=== PATIENT | female | born 1975 | race Caucasian/White ===

== ENCOUNTER → 2017-02-10 | Outpatient (CLI) | payer OTHER ==
--- NOTE | 2017-02-10 10:07 | MR ---
EXAMINATION TYPE: MR angio head wo con DATE OF EXAM: 02/10/2017 9:53 AM COMPARISON: MRI brain 09/10/2014 HISTORY: Vinny occipital neuralgia TECHNIQUE: Utilizing 3-D [id number] intracranial MRA of the [place] of [place] was performed. FINDINGS: The vertebrobasilar and carotid systems are patent. There is no sizable aneurysm or vascular malform ation. IMPRESSION: 1. No evidence of vascular malformation or sizable aneurysm.
== END | disposition home or self-care (01) ==
LOC: RADMRIMAIN 09:23
PROVIDERS: ATTEND Psychiatry & Neurology Neurology
DX: M54.81 Occipital neuralgia (principal)
CPT/HCPCS: 70544

== ENCOUNTER → 2018-07-29 | Outpatient (CLI) | payer OTHER ==
[2018-07-29 17:12] LABS: HCT 38.6 % (34.0-46.0); HGB 12.7 gm/dL (11.4-16.0); MCH 30.6 pg (25.0-35.0); MCHC 32.9 g/dL (31.0-37.0); MCV 93.3 fL (80.0-100.0); Mean Platelet Volume 6.9; Platelet Count 259 k/uL (150-450); RBC 4.13 m/uL (3.80-5.40); WBC 8.9 k/uL (3.8-10.6)
[2018-07-30 03:42] LABS: Progesterone 1.1 ng/mL
[2018-07-30 03:51] LABS: DHEA Sulfate 28.8 ug/dL (26.0-430.0)
== END | disposition home or self-care (01) ==
LOC: LABWHC1 16:36
PROVIDERS: ATTEND Surgery
DX: R53.83 Other fatigue (principal); E34.9 Endocrine disorder, unspecified; R61 Generalized hyperhidrosis; G47.9 Sleep disorder, unspecified
CPT/HCPCS: 36415; 82627; 82670; 84140; 84144; 84403; 84443; 84481; 85027

== ENCOUNTER → 2018-09-14 | Outpatient (CLI) | payer OTHER | LOC: LABWHC1 15:26 | PROVIDERS: ATTEND Surgery | DX: G47.00 Insomnia, unspecified (principal); E34.9 Endocrine disorder, unspecified; R53.81 Other malaise; R68.82 Decreased libido; Z51.81 Encounter for therapeutic drug level monitoring | CPT/HCPCS: 36415; 82627; 84144; 84403 ==

== ENCOUNTER → 2019-01-05 | Outpatient (CLI) | payer BC | LOC: LABWHC1 08:17 | PROVIDERS: ATTEND Surgery | DX: E34.9 Endocrine disorder, unspecified (principal); R53.81 Other malaise; Z51.81 Encounter for therapeutic drug level monitoring; G47.00 Insomnia, unspecified; R68.82 Decreased libido; R61 Generalized hyperhidrosis | CPT/HCPCS: 36415; 84403 ==

== ENCOUNTER 2019-09-19 09:44 | Inpatient (IN) | payer BC ==
[2019-09-19] MEDS ORDERED: MAGNESIUM SULFATE-D5W PMX 1 GM in DEXTROSE/WATER 1 100ML.BAG IVPB STA (09:52)
[2019-09-19] MEDS ORDERED: AZITHROMYCIN 500 MG in SODIUM CHLORIDE 0.9% 250 ML IVPB STA (09:52)
[2019-09-19] MEDS ORDERED: IPRATROPIUM 0.5 MG/2.5 ML NEBU INHALATION STA (09:52)
[2019-09-19] MEDS ORDERED: ALBUTEROL NEBULIZED 2.5 MG/3 ML INHALATION STA (09:52)
--- NOTE | 2019-09-19 10:00 | ED ---
General Adult HPI - General Stated complaint: bronchitis Time Seen by Provider: 09/19/19 09:52 Source: patient, family, RN notes reviewed, old records reviewed - History of Present Illness Initial comments: 44-year-old female history of asthma presenting for evaluation of cough and dyspnea. Patient has had 3 weeks of nonproductive cough and URI symptoms. She initially had been seen at an outside facility and had some improvement in her symptoms however over the past 24-48 hours she has worsened. She's had sore throat, congestion, and cough and dyspnea. She was seen at urgent care this morning given 125 mg Solu-Medrol and 2 breathing treatments. She was sent to the emergency department for further evaluation and treatment. Denies central chest pain. Denies abdominal pain nausea vomiting. - Related Data Home Medications Medication Instructions Recorded Confirmed Albuterol Sulfate [Proair Hfa] 1 puff INHALATION RT-Q6H PRN 10/04/14 10/04/15 Meclizine [Antivert] 25 mg PO TID PRN 10/04/14 10/04/15 tiZANidine HCL [Tizanidine HCl] 4 mg PO TID PRN 10/04/14 10/04/15 Albuterol Nebulized [Ventolin 2.5 mg INHALATION RT-Q6H PRN 10/04/15 10/04/15 Nebulized] FLUoxetine HCL [PROzac] 20 mg PO DAILY 10/04/15 10/04/15 Losartan-Hctz 50-12.5 mg [Hyzaar 1 tab PO DAILY 10/04/15 10/04/15 50-12.5] Ofloxacin 0.3% Ophth Soln [Ocuflox 1 drops BOTH EYES QID 10/04/15 10/04/15 Ophth Soln] Verapamil HCl [Verapamil ER] 240 mg PO DAILY 10/04/15 10/04/15 clonazePAM [KlonoPIN] 0.25 mg PO HS 10/04/15 10/04/15 Allergies Allergy/AdvReac Type Severity Reaction Status Date / Time amitriptyline HCl Allergy Unknown Verified 10/04/15 11:49 [From Elavil] hydrocodone bitartrate Allergy Unknown Verified 10/04/15 11:49 [From Vicodin] latex Allergy Unknown Verified 10/04/15 11:49 levomilnacipran HCl Allergy Unknown Verified 10/04/15 11:49 [From Fetzima] phenytoin sodium Allergy Unknown Verified 10/04/15 11:49 [From Dilantin] phenytoin sodium extended Allergy Unknown Verified 10/04/15 11:49 [From Dilantin] zolpidem tartrate Allergy Unknown Verified 10/04/15 11:49 [From Ambien] Review of Systems ROS Statement: Those systems with pertinent positive or pertinent negative responses have been documented in the HPI. ROS Other: All systems not noted in ROS Statement are negative. Past Medical History Past Medical History: Asthma, Seizure Disorder Additional Past Medical History / Comment(s): pituitary adenoma/ migraines/ influenza. Positive lyme dx 10 years ago History of Any Multi-Drug Resistant Organisms: MRSA Date of last positivie culture/infection: 2014 MDRO Source:: nose Past Surgical History: Section Additional Past Anesthesia/Blood Transfusion Reaction / Comment(s): NEVER Had blood transfusion Past Psychological History: ADD/ADHD, Anxiety Smoking Status: Never smoker Past Alcohol Use History: None Reported General Exam General appearance: alert, in distress (Mild respiratory distress) Head exam: Present: atraumatic, normocephalic Eye exam: Present: normal appearance, PERRL ENT exam: Present: mucous membranes moist, other (Differential erythema, no tonsillar swelling or exudate) Respiratory exam: Present: respiratory distress (Mild), wheezes, decreased breath sounds, other (Bronchospastic cough) Cardiovascular Exam: Present: normal rhythm, tachycardia GI/Abdominal exam: Present: soft. Absent: distended, tenderness, guarding Extremities exam: Present: normal inspection, normal capillary refill. Absent: pedal edema, calf tenderness Neurological exam: Present: alert, oriented X3, CN II-XII intact. Absent: motor sensory deficit Psychiatric exam: Present: normal affect, normal mood Skin exam: Present: warm, dry, intact. Absent: cyanosis, diaphoretic Course Vital Signs 09/19/19 09/19/19 09/19/19 09:54 10:00 10:01 Temperature 98.8 F Pulse Rate 94 98 Respiratory 18 30 H Rate Blood Pressure 125/73 O2 Sat by Pulse 99 Oximetry 09/19/19 09/19/19 10:15 10:23 Temperature Pulse Rate 97 84 Respiratory Rate Blood Pressure O2 Sat by Pulse Oximetry - Reevaluation(s) Reevaluation #1: 09/19/19 11:06 Patient evaluated, resting comfortably, significantly improve her respiratory status. She did have improvement with racemic epinephrine. Medical Decision Making - Medical Decision Making 44-year-old female 3 weeks of cough congestion and dyspnea worsening over the past 24 hours. Patient given albuterol, Atrovent and steroids prior to arrival, she given additional albuterol and magnesium. She had some improvement with racemic epinephrine as there was a slight suggestion of inspiratory upper airway sounds. No resting stridor. Significant bronchospastic cough. She will be admitted for IV steroids and further respiratory support. Case discussed with admitting physician Dr. Veronica - Lab Data Result diagrams: 09/19/19 10:00 09/19/19 10:00 Lab Results 09/19/19 09/19/19 09/19/19 Range/Units 10:00 10:00 10:00 WBC 14.5 H (3.8-10.6) k/uL RBC 4.13 (3.80-5.40) m/uL Hgb 13.0 (11.4-16.0) gm/dL Hct 38.4 (34.0-46.0) % MCV 92.9 (80.0-100.0) fL MCH 31.4 (25.0-35.0) pg MCHC 33.8 (31.0-37.0) g/dL RDW 12.3 (11.5-15.5) % Plt Count 223 (150-450) k/uL Neutrophils % 83 % Lymphocytes % 13 % Monocytes % 3 % Eosinophils % 1 % Basophils % 0 % Neutrophils # 12.0 H (1.3-7.7) k/uL Lymphocytes # 1.8 (1.0-4.8) k/uL Monocytes # 0.4 (0-1.0) k/uL Eosinophils # 0.1 (0-0.7) k/uL Basophils # 0.0 (0-0.2) k/uL PT 9.8 (9.0-12.0) sec INR 0.9 (<1.2) APTT 26.4 (22.0-30.0) sec Sodium 140 (137-145) mmol/L Potassium 3.9 (3.5-5.1) mmol/L Chloride 111 H (98-107) mmol/L Carbon Dioxide 20 L (22-30) mmol/L Anion Gap 9 mmol/L BUN 11 (7-17) mg/dL Creatinine 0.67 (0.52-1.04) mg/dL Est GFR (CKD-EPI)AfAm >90 (>60 ml/min/1.73 sqM) Est GFR (CKD-EPI)NonAf >90 (>60 ml/min/1.73 sqM) Glucose 104 H (74-99) mg/dL Calcium 9.0 (8.4-10.2) mg/dL Magnesium 1.7 (1.6-2.3) mg/dL Total Bilirubin 0.4 (0.2-1.3) mg/dL AST 43 H (14-36) U/L ALT 36 (9-52) U/L Alkaline Phosphatase 90 (38-126) U/L Total Protein 7.0 (6.3-8.2) g/dL Albumin 3.9 (3.5-5.0) g/dL Disposition Clinical Impression: Asthma with acute exacerbation Disposition: ADMITTED IP TO THIS [facility] Condition: Stable Is patient prescribed a controlled substance at d/c from ED?: No Referrals: Urszula Guzman MD [Primary Care Provider] - 1-2 days Decision to Admit Reason: Admit from EC Decision Date: 09/19/19 Decision Time: 11:08
[2019-09-19 10:09] LABS: Basophils % (A) 0 %; Eosinophils # (A) 0.1 k/uL (0-0.7); Eosinophils % (A) 1 %; HCT 38.4 % (34.0-46.0); Lymphocytes # (A) 1.8 k/uL (1.0-4.8); Lymphocytes % (A) 13 %; MCH 31.4 pg (25.0-35.0); MCHC 33.8 g/dL (31.0-37.0); MCV 92.9 fL (80.0-100.0); Mean Platelet Volume 6.4; Monocytes # (A) 0.4 k/uL (0-1.0); Monocytes % (A) 3 %; Neutrophils % (A) 83 %; Platelet Count 223 k/uL (150-450); RBC 4.13 m/uL (3.80-5.40); RDW 12.3 % (11.5-15.5); WBC 14.5 k/uL (3.8-10.6)
[2019-09-19] MEDS ORDERED: RACEPINEPHRINE 2.25% NEB 0.5 ML NEBU INHALATION STA (10:12)
[2019-09-19 10:29] LABS: INR 0.9 (<1.2); Partial Thromboplastin Time 26.4 sec (22.0-30.0); Prothrombin Time 9.8 sec (9.0-12.0)
[2019-09-19 10:58] LABS: ALT 36 U/L (9-52); AST 43 U/L (14-36); African American GFR (CKD) >90 (>60 ml/min/1.73 sqM); Albumin 3.9 g/dL (3.5-5.0); Alkaline Phosphatase 90 U/L (38-126); Anion Gap 9 mmol/L; Blood Urea Nitrogen 11 mg/dL (7-17); Carbon Dioxide 20 mmol/L (22-30); Chloride 111 mmol/L (98-107); Glucose 104 mg/dL (74-99); Magnesium 1.7 mg/dL (1.6-2.3); Potassium 3.9 mmol/L (3.5-5.1); Sodium 140 mmol/L (137-145); Total Bilirubin 0.4 mg/dL (0.2-1.3)
--- NOTE | 2019-09-19 10:59 | XR ---
EXAMINATION TYPE: XR chest 2V DATE OF EXAM: 09/19/2019 HISTORY: difficulty breathing. REFERENCE: Previous study dated 10/04/2015. FINDINGS: The lungs remain clear. Pleural space are clear. The heart is not enlarged. IMPRESSION: NO ACTIVE INTRATHORACIC DISEASE.
[2019-09-19] MEDS ORDERED: IPRATROPIUM-ALBUTEROL 3 ML NEB INHALATION PRN (11:01)
[2019-09-19] MEDS ORDERED: RACEPINEPHRINE 2.25% NEB 0.5 ML NEBU INHALATION PRN (11:06)
[2019-09-19] MEDS ORDERED: SODIUM CHLORIDE 0.9% 1,000 ML IV SCH (12:15)
--- NOTE | 2019-09-19 12:58 | P.HPIM ---
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 Hypothyroidism and high blood pressure. She has 2 dogs at home. She has history of hysterectomy secondary to endometriosis Presents because of dyspnea over 3 weeks duration. Patient states that she went to urgent care with diagnosed her with fibrosing from however after one week she went back because she wasn't feeling better and they diagnosed her with bronchitis and cough and these described prep cefdinir and destroyed she felt better and her last dose of antibiotics was once daily, however answers that she started feeling bad again with sore throat fever of 101 and dyspnea. Also she has complained from dry cough, generalized body ache and headache. Also complaining of from diarrhea about 3-4 times per day Vitas looks stable, patient is afebrile and she saturating 95% on room air. Labs showing leukocytosis of 14.5 K, INR within normal limits, BMP and liver enzymes were unremarkable. Chest x-ray: No acute process. In the emergency room she got bronchodilator, and started on Zithromax, also she gets 1 dose of racemic epinephrine for stridor. Patient was started on senna Medrol 60 mg. after therapy patient feels much better, no much try to when I saw the patient Review of Systems CONSTITUTIONAL: No fever, no malaise, no fatigue. HEENT: No recent visual problems or hearing problems. Denied any sore throat. CARDIOVASCULAR: No orthopnea, PND, no palpitations, no syncope. PULMONARY: No shortness of breath, no cough, no hemoptysis. GASTROINTESTINAL: No diarrhea, no nausea, no vomiting, no abdominal pain. Normoactive bowel sounds. NEUROLOGICAL: No headaches, no weakness, no numbness. HEMATOLOGICAL: Denies any bleeding or petechiae. GENITOURINARY: Denies any burning micturition, frequency, or urgency. MUSCULOSKELETAL/RHEUMATOLOGICAL: Denies any joint pain, swelling, or any muscle pain. ENDOCRINE: Denies any polyuria or polydipsia. ROS unobtainable: due to endotracheal tube Past Medical History Past Medical History: Asthma, Seizure Disorder Additional Past Medical History / Comment(s): pituitary adenoma/ migraines/ influenza. Positive lyme dx 10 years ago History of Any Multi-Drug Resistant Organisms: MRSA Date of last positivie culture/infection: 2014 MDRO Source:: nose Past Surgical History: Section Additional Past Anesthesia/Blood Transfusion Reaction / Comment(s): NEVER Had blood transfusion Past Psychological History: ADD/ADHD, Anxiety Smoking Status: Never smoker Past Alcohol Use History: None Reported Medications and Allergies Home Medications Medication Instructions Recorded Confirmed Type Albuterol Nebulized [Ventolin 2.5 mg INHALATION RT-TID PRN 10/04/15 09/19/19 History Nebulized] Sertraline HCl [Zoloft] 100 mg PO HS 09/19/19 09/19/19 History Thyroid,Pork [[place] Thyroid] 60 mg PO DAILY 09/19/19 09/19/19 History Triamterene/Hydrochlorothiazid 1 tab PO DAILY 09/19/19 09/19/19 History [Maxzide 37.5-25] hydrOXYzine HCL [Atarax] 12.5 - 25 mg PO HS 09/19/19 09/19/19 History Allergies Allergy/AdvReac Type Severity Reaction Status Date / Time amitriptyline HCl Allergy Unknown Verified 09/19/19 11:20 [From Elavil] hydrocodone bitartrate Allergy Unknown Verified 09/19/19 11:20 [From Vicodin] latex Allergy Unknown Verified 09/19/19 11:20 levomilnacipran HCl Allergy Unknown Verified 09/19/19 11:20 [From Fetzima] phenytoin sodium Allergy Unknown Verified 09/19/19 11:20 [From Dilantin] phenytoin sodium extended Allergy Unknown Verified 09/19/19 11:20 [From Dilantin] zolpidem tartrate Allergy Unknown Verified 09/19/19 11:20 [From Ambien] Physical Exam Vitals: Vital Signs Temp Pulse Pulse Resp BP BP Pulse Ox 09/19/19 12:08 98.3 F 99 24 118/70 98 09/19/19 11:30 98.0 F 102 H 16 131/89 100 09/19/19 10:23 84 09/19/19 10:15 97 09/19/19 10:01 98 09/19/19 10:00 30 H 09/19/19 09:54 98.8 F 94 18 125/73 99 Intake and Output 09/18/19 09/19/19 09/19/19 22:59 06:59 14:59 Other: Weight 77.111 kg GENERAL: The patient is alert and oriented x3, not in any acute distress. Well developed, well nourished. HEENT: Pupils are round and equally reacting to light. EOMI. No scleral icterus. No conjunctival pallor. Normocephalic, atraumatic. No pharyngeal erythema. No thyromegaly. CARDIOVASCULAR: S1 and S2 present. No murmurs, rubs, or gallops. -PULMONARY: Chest is clear to auscultation, bilateral scattered expiratory wheezing ABDOMEN: Soft, nontender, nondistended, normoactive bowel sounds. No palpable organomegaly. MUSCULOSKELETAL: No joint swelling or deformity. EXTREMITIES: No cyanosis, clubbing, or pedal edema. NEUROLOGICAL: Gross neurological examination did not reveal any focal deficits. SKIN: No rashes. No petechiae Results CBC & Chem 7: 09/19/19 10:00 09/19/19 10:00 Labs: Abnormal Lab Results - Last 24 Hours (Table) 09/19/19 09/19/19 Range/Units 10:00 10:00 WBC 14.5 H (3.8-10.6) k/uL Neutrophils # 12.0 H (1.3-7.7) k/uL Chloride 111 H (98-107) mmol/L Carbon Dioxide 20 L (22-30) mmol/L Glucose 104 H (74-99) mg/dL AST 43 H (14-36) U/L Assessment and Plan Assessment: Upper respiratory tract infection. 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 Also patient had fever. Continue with antibiotics, steroids and bronchodilators. Oxygen as needed. Call pulmonary consult. Check influenza.Start the patient on normal saline at 75 mL/h. Check protocols 20 Labs and medication were reviewed.. Continue same treatment. Continue with symptomatic treatment. Resume home medication. Monitor lytes and vitals. DVT and GI prophylaxis. Further recommendations of the clinical course of the patient DVT prophylaxis: Subcutaneous heparin GI Prophylaxis: Pepcid Prognosis is guarded
[2019-09-19 12:59] LABS: Glucose,Whole Blood 207 mg/dL (75-99)
--- NOTE | 2019-09-19 13:25 | P.CNPUL ---
History of Present Illness Consult date: 09/19/19 Reason for consult: dyspnea History of present illness: Pleasant 44-year-old female patient with history of mild intermittent bronchial asthma with not been taking any form of respiratory medications on outpatient basis, comes into the hospital because of increased cough and dyspnea and chest tightness and wheezing related to asthma exacerbation. Apparently this been going on for the past 2-3 weeks. She has seen in urgent care on several o ccasions and she was given a course of antibiotics and a short course of prednisone burst taper. She was having sore throat and a temperature along with her asthma symptoms. Initially she was told that she was dealing with a viral infection and subsequently she was given antibiotics. Note that the patient was having generalized body aches and headache. She did experience some diarrhea. None for now. She came into the hospital yesterday because of increased dyspnea. She was given bronchodilators and steroids. She was also given a dose of to make epinephrine. She is a bit tachycardic. She is already feeling better. No specific complaints. She has seasonal ALLERGIES and she takes Al legra for that. No hospitalizations for asthma related complications. Her disease has been essentially mild intermittent in nature. She has other medical problems and comorbidities yet these are not related to asthma. No recurrent pneumonias. Her lactic acid at time of admission was 2.7. I thought, was at 14.5. Review of Systems Constitutional: Reports fatigue, Reports fever, Reports lethargy, Reports weakness Eyes: denies as per HPI, denies blurred vision, denies bulging eye, denies decreased vision, denies diplopia, denies discharge, denies dry eye, denies irritation, denies itching, denies pain, denies photophobia, denies loss of peripheral vision, denies loss of vision, denies tunnel vision/blind spots Ears: deny: decreased hearing, ear discharge, earache, tinnitus Ears, nose, mouth and throat: Reports as per HPI, Reports mouth pain (Sore throat) Breasts: absent: as per HPI, change in shape, gynecomastia, masses, nipple discharge, pain, skin changes, swelling Cardiovascular: Reports dyspnea on exertion Respiratory: Reports cough, Reports dyspnea, Reports wheezing Gastrointestinal: Reports as per HPI Genitourinary: Reports as per HPI Menstruation: Reports as per HPI Musculoskeletal: Reports as per HPI Musculoskeletal: absent: ankle pain, ankle stiffness, ankle swelling, as per HPI, elbow pain, elbow stiffness, elbow swelling, foot pain, foot stiffness, f oot swelling, hand pain, hand stiffness, hand swelling, hip pain, hip stiffness, hip swelling, knee pain, knee stiffness, knee swelling, shoulder pain, shoulder stiffness, shoulder swelling, wrist pain, wrist stiffness, wrist swelling Integumentary: Reports as per HPI Neurological: Reports as per HPI Psychiatric: Reports as per HPI Endocrine: Reports as per HPI Hematologic/Lymphatic: Reports as per HPI Allergic/Immunologic: Reports as per HPI Past Medical History Past Medical History: Asthma, Seizure Disorder Additional Past Medical History / Comment(s): pituitary adenoma/ migraines/ influenza. Positive lyme dx 10 years ago History of Any Multi-Drug Resistant Organisms: MRSA Date of last positivie culture/infection: 2014 MDRO Source:: nose Past Surgical History: Section Additional Past Anesthesia/Blood Transfusion Reaction / Comment(s): NEVER Had blood transfusion Past Psychological History: ADD/ADHD, Anxiety Smoking Status: Never smoker Past Alcohol Use History: None Reported Medications and Allergies Home Medications Medication Instructions Recorded Confirmed Type Albuterol Nebulized [Ventolin 2.5 mg INHALATION RT-TID PRN 10/04/15 09/19/19 History Nebulized] Sertraline HCl [Zoloft] 100 mg PO HS 09/19/19 09/19/19 History Thyroid,Pork [[place] Thyroid] 60 mg PO DAILY 09/19/19 09/19/19 History Triamterene/Hydrochlorothiazid 1 tab PO DAILY 09/19/19 09/19/19 History [Maxzide 37.5-25] hydrOXYzine HCL [Atarax] 12.5 - 25 mg PO HS 09/19/19 09/19/19 History Allergies Allergy/AdvReac Type Severity Reaction Status Date / Time amitriptyline HCl Allergy Unknown Verified 09/19/19 11:20 [From Elavil] hydrocodone bitartrate Allergy Unknown Verified 09/19/19 11:20 [From Vicodin] latex Allergy Unknown Verified 09/19/19 11:20 levomilnacipran HCl Allergy Unknown Verified 09/19/19 11:20 [From Fetzima] phenytoin sodium Allergy Unknown Verified 09/19/19 11:20 [From Dilantin] phenytoin sodium extended Allergy Unknown Verified 09/19/19 11:20 [From Dilantin] zolpidem tartrate Allergy Unknown Verified 09/19/19 11:20 [From Ambien] Physical Exam Vitals: Vital Signs Temp Pulse Pulse Resp BP BP Pulse Ox 09/19/19 12:08 98.3 F 99 24 118/70 98 09/19/19 11:30 98.0 F 102 H 16 131/89 100 09/19/19 10:23 84 09/19/19 10:15 97 09/19/19 10:01 98 09/19/19 10:00 30 H 09/19/19 09:54 98.8 F 94 18 125/73 99 Intake and Output 09/18/19 09/19/19 09/19/19 22:59 06:59 14:59 Other: Weight 77.111 kg The patient appeared well nourished and normally developed. Vital signs as documented. Head exam is unremarkable. No scleral icterus or corneal arcus noted. Neck is without jugular venous distension, thyromegaly, or carotid bruits. Carotid upstrokes are brisk bilaterally. Lungs are diminished along with some few scattered expiratory wheezes upon forceful expiratory maneuvers. Cardiac exam reveals the PMI to be normally sized and situated. Rhythm is regular. First and second heart sounds normal. No murmurs, rubs or gallops. Abdominal exam reveals normal bowel sounds, no masses, no organomegaly and no aortic enlargement. Extremities are nonedematous and both femoral and pedal pulses are normal.Examination of the skin revealed no evidence of significant rashes, suspicious appearing nevi or other concerning lesions. Neurologically the patient is awake and alert and there is no focal neurological deficit. Results - Laboratory Findings CBC and BMP: 09/19/19 10:00 09/19/19 10:00 ABG WBC 14.5 k/uL (3.8-10.6) H 09/19/19 10:00 RBC 4.13 m/uL (3.80-5.40) 09/19/19 10:00 Hgb 13.0 gm/dL (11.4-16.0) 09/19/19 10:00 Hct 38.4 % (34.0-46.0) 09/19/19 10:00 MCV 92.9 fL (80.0-100.0) 09/19/19 10:00 MCH 31.4 pg (25.0-35.0) 09/19/19 10:00 MCHC 33.8 g/dL (31.0-37.0) 09/19/19 10:00 RDW 12.3 % (11.5-15.5) 09/19/19 10:00 Plt Count 223 k/uL (150-450) 09/19/19 10:00 Neutrophils % 83 % 09/19/19 10:00 Lymphocytes % 13 % 09/19/19 10:00 Monocytes % 3 % 09/19/19 10:00 Eosinophils % 1 % 09/19/19 10:00 Basophils % 0 % 09/19/19 10:00 Neutrophils # 12.0 k/uL (1.3-7.7) H 09/19/19 10:00 Lymphocytes # 1.8 k/uL (1.0-4.8) 09/19/19 10:00 Monocytes # 0.4 k/uL (0-1.0) 09/19/19 10:00 Eosinophils # 0.1 k/uL (0-0.7) 09/19/19 10:00 Basophils # 0.0 k/uL (0-0.2) 09/19/19 10:00 PT 9.8 sec (9.0-12.0) 09/19/19 10:00 INR 0.9 (<1.2) 09/19/19 10:00 APTT 26.4 sec (22.0-30.0) 09/19/19 10:00 Sodium 140 mmol/L (137-145) 09/19/19 10:00 Potassium 3.9 mmol/L (3.5-5.1) 09/19/19 10:00 Chloride 111 mmol/L (98-107) H 09/19/19 10:00 Carbon Dioxide 20 mmol/L (22-30) L 09/19/19 10:00 Anion Gap 9 mmol/L 09/19/19 10:00 BUN 11 mg/dL (7-17) 09/19/19 10:00 Creatinine 0.67 mg/dL (0.52-1.04) 09/19/19 10:00 Est GFR (CKD-EPI)AfAm >90 (>60 ml/min/1.73 sqM) 09/19/19 10:00 Est GFR (CKD-EPI)NonAf >90 (>60 ml/min/1.73 sqM) 09/19/19 10:00 Glucose 104 mg/dL (74-99) H 09/19/19 10:00 POC Glucose (mg/dL) 207 mg/dL (75-99) H 09/19/19 12:58 POC Glu Gunite Mixer ID Michael Haro 09/19/19 12:58 Plasma Lactic Acid Gurpreet 2.7 mmol/L (0.7-2.0) H* 09/19/19 10:00 Calcium 9.0 mg/dL (8.4-10.2) 09/19/19 10:00 Magnesium 1.7 mg/dL (1.6-2.3) 09/19/19 10:00 Total Bilirubin 0.4 mg/dL (0.2-1.3) 09/19/19 10:00 AST 43 U/L (14-36) H 09/19/19 10:00 ALT 36 U/L (9-52) 09/19/19 10:00 Alkaline Phosphatase 90 U/L (38-126) 09/19/19 10:00 Total Protein 7.0 g/dL (6.3-8.2) 09/19/19 10:00 Albumin 3.9 g/dL (3.5-5.0) 09/19/19 10:00 PT/INR, D-dimer PT 9.8 sec (9.0-12.0) 09/19/19 10:00 INR 0.9 (<1.2) 09/19/19 10:00 Abnormal lab findings: Abnormal Labs 09/19/19 09/19/19 09/19/19 10:00 10:00 10:00 WBC 14.5 H Neutrophils # 12.0 H Chloride 111 H Carbon Dioxide 20 L Glucose 104 H POC Glucose (mg/dL) Plasma Lactic Acid Gurpreet 2.7 H* AST 43 H 09/19/19 12:58 WBC Neutrophils # Chloride Carbon Dioxide Glucose POC Glucose (mg/dL) 207 H Plasma Lactic Acid Gurpreet AST - Diagnostic Findings Chest x-ray: image reviewed Assessment and Plan Plan: 1 acute asthma exacerbation with secondary shortness of breath and cough and wheeze. 2 acute bronchitis, no evidence of pneumonia and the patient has received antibiotics and steroids on outpatient basis. This could be viral versus bacte rial. Chest x-ray show any pulmonary infiltrates or pneumonias. 3 Mild lactic acidosis, with some leukocytosis and this is to be monitored and there is no clinical evidence of any septic event for now. 4. History of Lyme's disease 5 hypothyroidism 6 hypertension 7 history of endometriosis Plan Continued on the current treatment. The patient was noted to be slightly tachycardic. His continue the systemic epinephrine used regular albuterol and Atrovent solution Continued IV Solu-Medrol. Continue antibiotics. Monitor the white cell count. Monitor lactic acid levels. We'll continue to follow. This is a case of mild intermittent bronchial asthma and she may not even require maintenance inhalers on outpatient basis. We'll be glad to see her in the office once she is discharged. Anticipate for recovery.
[2019-09-19] MEDS: methylPREDNISolone SOD SUCCI 125 MG/2 ML VIAL IV SCH ×3 (13:29→23:26)
[2019-09-19] MEDS: INSULIN ASPART (NovoLOG) 100 UNIT/ML VIAL SQ SCH ×3 (13:32→21:14)
[2019-09-19] MEDS: ACETAMINOPHEN TAB 325 MG TAB PO PRN (15:53)
[2019-09-19] MEDS: IPRATROPIUM-ALBUTEROL 3 ML NEB INHALATION SCH ×2 (17:22→20:01)
[2019-09-19 17:29] LABS: Glucose,Whole Blood 156 mg/dL (75-99)
[2019-09-19] MEDS ORDERED: SODIUM CHLORIDE 0.9% 1,000 ML IV ONE (17:59)
[2019-09-19] MEDS: BUTALB/APAP/CAFF 50-325-40MG TAB PO PRN (18:02)
[2019-09-19] MEDS: SODIUM CHLORIDE 0.9% 1,000 ML IV SCH (19:25)
[2019-09-19 20:26] LABS: Glucose,Whole Blood 217 mg/dL (75-99)
[2019-09-19] MEDS: HEPARIN SODIUM,PORCINE 5,000 UNIT/ML 1 ML VIAL SQ SCH (21:13)
[2019-09-19] MEDS: FAMOTIDINE 20 MG/2 ML VIAL IV SCH (21:13)
[2019-09-20] MEDS: ACETAMINOPHEN TAB 325 MG TAB PO PRN (05:15)
[2019-09-20] MEDS: BUTALB/APAP/CAFF 50-325-40MG TAB PO PRN ×3 (05:20→15:01)
[2019-09-20 06:56] LABS: Glucose,Whole Blood 140 mg/dL (75-99)
[2019-09-20] MEDS: SODIUM CHLORIDE 0.9% 1,000 ML IV SCH ×2 (07:00→18:00)
[2019-09-20] MEDS: methylPREDNISolone SOD SUCCI 125 MG/2 ML VIAL IV SCH ×3 (07:00→17:59)
[2019-09-20] MEDS: INSULIN ASPART (NovoLOG) 100 UNIT/ML VIAL SQ SCH ×4 (07:01→22:35)
[2019-09-20] MEDS: IPRATROPIUM-ALBUTEROL 3 ML NEB INHALATION SCH ×4 (09:02→20:59)
[2019-09-20] MEDS: AZITHROMYCIN 500 MG TAB PO SCH (09:24)
[2019-09-20] MEDS: FAMOTIDINE 20 MG/2 ML VIAL IV SCH ×2 (09:25→20:32)
[2019-09-20] MEDS: HEPARIN SODIUM,PORCINE 5,000 UNIT/ML 1 ML VIAL SQ SCH ×2 (09:25→20:32)
--- NOTE | 2019-09-20 09:55 | P.PN ---
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 Hypothyroidism and high blood pressure. She has 2 dogs at home. She has history of hysterectomy secondary to endometriosis Presents because of dyspnea over 3 weeks duration. Patient states that she went to urgent care with diagnosed her with fibrosing from however after one week she went back because she wasn't feeling better and they diagnosed her with bronchitis and cough and these described prep cefdinir and destroyed she felt better and her last dose of antibiotics was once daily, however answers that she started feeling bad again with sore throat fever of 101 and dyspnea. Also she has complained from dry cough, generalized body ache and headache. Also complaining of from diarrhea about 3-4 times per day Vitas looks stable, patient is afebrile and she saturating 95% on room air. Labs showing leukocytosis of 14.5 K, INR within normal limits, BMP and liver enzymes were unremarkable. Chest x-ray: No acute process. In the emergency room she got bronchodilator, and started on Zithromax, also she gets 1 dose of racemic epinephrine for stridor. Patient was started on senna Medrol 60 mg. after therapy patient feels much better, no much try to when I saw the patient 09/20/2019 Patient feels better today her dyspnea is improved by 50% as per her description. No chest pain she has some dry cough, cough suppressant is a provided. Vitas looks stable and she saturating 99% on room air. Her lactic acid came back to normal at 1.7. She remains on Zithromax and Solu-Medrol 60 mg as well as normal saline at 75 mL/h continue with pain management with Fioricet. Pulmonary team are following the patient closely Review of systems CONSTITUTIONAL: No fever, no malaise, no fatigue. HEENT: No recent visual problems or hearing problems. Denied any sore throat. CARDIOVASCULAR: no palpitations, no syncope. PULMONARY: no hemoptysis. GASTROINTESTINAL: No diarrhea, no nausea, no vomiting, no abdominal pain. Normoactive bowel sounds. NEUROLOGICAL: No headaches, no weakness, no numbness. HEMATOLOGICAL: Denies any bleeding or petechiae. GENITOURINARY: Denies any burning micturition, frequency, or urgency. MUSCULOSKELETAL/RHEUMATOLOGICAL: Denies any joint pain, swelling, or any muscle pain. ENDOCRINE: Denies any polyuria or polydipsia. Active Medications Generic Name Dose Route Start Last Admin Trade Name Freq PRN Reason Stop Dose Admin Acetaminophen 325 mg 09/19/19 15:38 09/20/19 05:15 Tylenol Tab PO 325 mg Q4HR PRN Administration Fever and/ or MILD Pain Acetaminophen/Butalbital/Caffeine 1 each 09/19/19 17:06 09/20/19 05:20 Fioricet 50-325-40 PO 1 each Q4HR PRN Administration Headache Albuterol/Ipratropium 3 ml 09/19/19 11:01 Duoneb 0.5 Mg-3 Mg/3 Ml Soln INHALATION RT-Q4H PRN Shortness Of Breath Or Wheezing Albuterol/Ipratropium 3 ml 09/19/19 16:00 09/20/19 09:02 Duoneb 0.5 Mg-3 Mg/3 Ml Soln INHALATION 3 ml RT-QID SADAF Administration Azithromycin 500 mg 09/20/19 09:00 09/20/19 09:24 Zithromax PO 500 mg DAILY SADAF Administration Epinephrine 0.5 ml 09/19/19 11:06 S2 Racepinephrine INHALATION RT-Q4H PRN Bronchospasm Famotidine 20 mg 09/19/19 21:00 09/20/19 09:25 Pepcid IV 20 mg Q12HR SADAF Administration Heparin Sodium (Porcine) 5,000 unit 09/19/19 21:00 09/20/19 09:25 Heparin SQ 5,000 unit Q12HR SADAF Administration Sodium Chloride 1,000 mls @ 75 mls/hr 09/19/19 13:00 09/20/19 07:00 Saline 0.9% IV 75 mls/hr .[id number] SADAF Administration Insulin Aspart 0 unit 09/19/19 17:30 09/20/19 07:01 Novolog SQ 1 unit ACHS SADAF Administration Protocol Methylprednisolone Sodium Succinate 60 mg 09/19/19 12:00 09/20/19 07:00 Solu-Medrol IV 60 mg Q6HR SADAF Administration Objective - Vital Signs Vital signs: Vital Signs Temp 98.6 F 09/20/19 08:20 Pulse 90 09/20/19 09:13 Resp 18 09/20/19 08:20 BP 114/75 09/20/19 08:20 Pulse Ox 99 09/20/19 08:20 Intake & Output 09/19/19 09/20/19 09/20/19 18:59 06:59 18:59 Intake Total 300 Balance 300 Weight 77.111 kg Intake: Oral 300 Other: Voiding Method Toilet # Voids 1 1 - Exam GENERAL: The patient is alert and oriented x3, not in any acute distress. Well developed, well nourished. HEENT: Pupils are round and equally reacting to light. EOMI. No scleral icterus. No conjunctival pallor. Normocephalic, atraumatic. No pharyngeal erythema. No thyromegaly. CARDIOVASCULAR: S1 and S2 present. No murmurs, rubs, or gallops. -PULMONARY: Chest is clear to auscultation, bilateral scattered expiratory wheezing ABDOMEN: Soft, nontender, nondistended, normoactive bowel sounds. No palpable organomegaly. MUSCULOSKELETAL: No joint swelling or deformity. EXTREMITIES: No cyanosis, clubbing, or pedal edema. NEUROLOGICAL: Gross neurological examination did not reveal any focal deficits. SKIN: No rashes. No petechiae - Labs CBC & Chem 7: 09/19/19 10:00 09/19/19 10:00 Labs: Abnormal Lab Results - Last 24 Hours (Table) 09/19/19 09/19/19 09/19/19 Range/Units 10:00 10:00 10:00 WBC 14.5 H (3.8-10.6) k/uL Neutrophils # 12.0 H (1.3-7.7) k/uL Chloride 111 H (98-107) mmol/L Carbon Dioxide 20 L (22-30) mmol/L Glucose 104 H (74-99) mg/dL POC Glucose (mg/dL) (75-99) mg/dL Plasma Lactic Acid Gurpreet 2.7 H* (0.7-2.0) mmol/L AST 43 H (14-36) U/L 09/19/19 09/19/19 09/19/19 Range/Units 12:58 16:15 17:28 WBC (3.8-10.6) k/uL Neutrophils # (1.3-7.7) k/uL Chloride (98-107) mmol/L Carbon Dioxide (22-30) mmol/L Glucose (74-99) mg/dL POC Glucose (mg/dL) 207 H 156 H (75-99) mg/dL Plasma Lactic Acid Gurpreet 3.0 H* (0.7-2.0) mmol/L AST (14-36) U/L 09/19/19 09/20/19 Range/Units 20:25 06:52 WBC (3.8-10.6) k/uL Neutrophils # (1.3-7.7) k/uL Chloride (98-107) mmol/L Carbon Dioxide (22-30) mmol/L Glucose (74-99) mg/dL POC Glucose (mg/dL) 217 H 140 H (75-99) mg/dL Plasma Lactic Acid Gurpreet (0.7-2.0) mmol/L AST (14-36) U/L Assessment and Plan Assessment: Upper respiratory tract infection. 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 Also patient had fever. Continue with antibiotics, steroids and bronchodilators. Oxygen as needed. Call pulmonary consult. Check influenza.Start the patient on normal saline at 75 mL/h. Check protocols 20 Labs and medication were reviewed.. Continue same treatment. Continue with symptomatic treatment. Resume home medication. Monitor lytes and vitals. DVT and GI prophylaxis. Further recommendations of the clinical course of the patient DVT prophylaxis: Subcutaneous heparin GI Prophylaxis: Pepcid Prognosis is guarded
[2019-09-20 12:29] LABS: Glucose,Whole Blood 151 mg/dL (75-99)
[2019-09-20 13:29] LABS: Basophils % (A) 0 %; Eosinophils # (A) 0.1 k/uL (0-0.7); Eosinophils % (A) 0 %; HGB 11.8 gm/dL (11.4-16.0); Lymphocytes # (A) 1.1 k/uL (1.0-4.8); Lymphocytes % (A) 5 %; MCH 31.4 pg (25.0-35.0); MCHC 32.7 g/dL (31.0-37.0); Mean Platelet Volume 7.6; Monocytes # (A) 0.4 k/uL (0-1.0); Monocytes % (A) 2 %; Neutrophils # (A) 19.1 k/uL (1.3-7.7); Neutrophils % (A) 92 %; Platelet Count 240 k/uL (150-450); RBC 3.75 m/uL (3.80-5.40); RDW 12.6 % (11.5-15.5); WBC 20.7 k/uL (3.8-10.6)
--- NOTE | 2019-09-20 13:36 | P.PN ---
Subjective Progress Note Date: 09/20/19 Principal diagnosis: Acute exacerbation of mild intermittent asthma Pleasant 44-year-old female patient with history of mild intermittent bronchial asthma with not been taking any form of respiratory medications on outpatient basis, comes into the hospital because of increased cough and dyspnea and chest tightness and wheezing related to asthma exacerbation. Apparently this been going on for the past 2-3 weeks. She has seen in urgent care on several occasions and she was given a course of antibiotics and a short course of prednisone burst taper. She was having sore throat and a temperature along with her asthma symptoms. Initially she was told that she was dealing with a viral infection and subsequently she was given antibiotics. Note that the patient was having generalized body aches and headache. She did experience some diarrhea. None for now. She came into the hospital yesterday because of increased dyspnea. She was given bronchodilators and steroids. She was also given a dose of to make epinephrine. She is a bit tachycardic. She is already feeling better. No specific complaints. She has seasonal ALLERGIES and she takes Laure for that. No hospitalizations for asthma related complications. Her disease has been essentially mild intermittent in nature. She has other medical problems and comorbidities yet these are not related to asthma. No recurrent pneumonias. Her lactic acid at time of admission was 2.7. I thought, was at 14.5. Patient was reevaluated today on 09/20/2019, remains inpatient, however the patient is demonstrating a significant improvement over the last 24 hours. Patient is breathing a lot easier, minimal cough minimal wheezing, minimal shortness of breath compared to yesterday. Remains on bronchodilators and steroids as well as antibiotics. Significantly improved over the last 24 hours. WBC count is 20.7 hemoglobin is 11.8, however her leukocytosis could very well be related to steroids. Chest x-ray on admission showed no evidence of pneumonia. Objective - Vital Signs Vital signs: Vital Signs Temp 98.4 F 09/20/19 12:10 Pulse 92 09/20/19 13:23 Resp 18 09/20/19 12:10 BP 101/67 09/20/19 12:10 Pulse Ox 100 09/20/19 12:10 Intake & Output 09/19/19 09/20/19 09/20/19 18:59 06:59 18:59 Intake Total 300 Balance 300 Weight 77.111 kg Intake: Oral 300 Other: Voiding Method Toilet # Voids 1 1 - Exam Physical Exam: Revealed a 44-year-old female, pleasant, in no distress. Head: Atraumatic normocephalic. HEENT:[Neck is supple.] [No neck masses.] [No thyromegaly.] [No JVD.] PERRLA, EOMI, no icterus, moist mucous membranes. Chest: [Clear throughout, no crackles, no rhonchi, no wheezes.] Cardiac Exam: [Normal S1 and S2, no S3 gallop, no murmur.] Abdomen: [Soft, nontender, no megaly, no rebound, no guarding, normal bowel sounds.] Extremities: [No clubbing, no edema, no cyanosis.] Neurological Exam: [No focal neurologic deficit.] Alert oriented 3. Psychiatric: Normal mood affect and normal mental status examination. Skin: No rashes. Musculoskeletal: No limitations in range of motion and no deformities. - Labs CBC & Chem 7: 09/20/19 12:51 09/19/19 10:00 Labs: Abnormal Lab Results - Last 24 Hours (Table) 09/19/19 09/19/19 09/19/19 Range/Units 16:15 17:28 20:25 WBC (3.8-10.6) k/uL RBC (3.80-5.40) m/uL Neutrophils # (1.3-7.7) k/uL POC Glucose (mg/dL) 156 H 217 H (75-99) mg/dL Plasma Lactic Acid Gurpreet 3.0 H* (0.7-2.0) mmol/L 09/20/19 09/20/19 09/20/19 Range/Units 06:52 12:26 12:51 WBC 20.7 H (3.8-10.6) k/uL RBC 3.75 L (3.80-5.40) m/uL Neutrophils # 19.1 H (1.3-7.7) k/uL POC Glucose (mg/dL) 140 H 151 H (75-99) mg/dL Plasma Lactic Acid Gurpreet (0.7-2.0) mmol/L Microbiology - Last 24 Hours (Table) 09/19/19 10:00 Blood Culture - Preliminary Blood No Growth after 24 hours Assessment and Plan Assessment: Impression: Acute exacerbation of mild intermittent asthma Acute tracheobronchitis, no evidence of infiltrates on the chest x-ray. History of Lyme disease, treated. Hypothyroidism Hypertension History of endometriosis. Recommendation: Continue present bronchodilators and steroids, continue Zithromax, continue Pepcid, continue DVT prophylaxis, consider discharge planning in the next 24 hours. We'll reevaluate in the morning, patient should have outpatient follow-up in our office for her asthma. Time with Patient: Less than 30
[2019-09-20 15:32] LABS: Hemoglobin A1C 4.9 % (4.0-6.0)
[2019-09-20 17:45] LABS: Glucose,Whole Blood 154 mg/dL (75-99)
[2019-09-20 20:31] LABS: Glucose,Whole Blood 126 mg/dL (75-99)
[2019-09-20] MEDS: guaiFENesin-DM 100-10MG/5ML 10 ML CUP PO PRN (20:42)
[2019-09-20] MEDS: SERTRALINE 100 MG TAB PO SCH (22:43)
[2019-09-20] MEDS ORDERED: ONDANSETRON 4 MG/2 ML VIAL IVP STA (23:40)
[2019-09-20] MEDS ORDERED: CALCIUM CARBONATE 500 MG CHEWABLE PO PRN (23:41)
[2019-09-21] MEDS: methylPREDNISolone SOD SUCCI 125 MG/2 ML VIAL IV SCH ×5 (06:53→23:03)
[2019-09-21 06:57] LABS: Glucose,Whole Blood 109 mg/dL (75-99)
[2019-09-21] MEDS: INSULIN ASPART (NovoLOG) 100 UNIT/ML VIAL SQ SCH ×4 (06:58→20:33)
[2019-09-21] MEDS: IPRATROPIUM-ALBUTEROL 3 ML NEB INHALATION SCH ×4 (07:49→20:00)
[2019-09-21 07:54] LABS: Basophils # (A) 0.1 k/uL (0-0.2); Basophils % (A) 1 %; Eosinophils % (A) 0 %; HCT 34.6 % (34.0-46.0); HGB 10.9 gm/dL (11.4-16.0); Lymphocytes # (A) 1.8 k/uL (1.0-4.8); Lymphocytes % (A) 11 %; MCH 30.9 pg (25.0-35.0); MCHC 31.6 g/dL (31.0-37.0); MCV 97.7 fL (80.0-100.0); Mean Platelet Volume 7.4; Monocytes # (A) 0.5 k/uL (0-1.0); Monocytes % (A) 3 %; Neutrophils # (A) 13.6 k/uL (1.3-7.7); Neutrophils % (A) 84 %; Platelet Count 224 k/uL (150-450); RBC 3.55 m/uL (3.80-5.40); RDW 12.6 % (11.5-15.5); WBC 16.1 k/uL (3.8-10.6)
[2019-09-21] MEDS: TRIAMTERENE-HCTZ 37.5-25MG 1 EACH TAB PO SCH (08:31)
[2019-09-21] MEDS: AZITHROMYCIN 500 MG TAB PO SCH (08:32)
[2019-09-21] MEDS: FAMOTIDINE 20 MG/2 ML VIAL IV SCH ×2 (08:32→20:33)
--- NOTE | 2019-09-21 08:32 | XR ---
EXAMINATION TYPE: XR chest 2V DATE OF EXAM: 09/21/2019 COMPARISON: 09/19/2019 HISTORY: Cough, chest heaviness, asthma exacerbation TECHNIQUE: Frontal and lateral views of the chest are obtained. FINDINGS: Diffuse interstitial prominence is seen, new from the prior. No focal consolidation, pleur al effusion or pneumothorax seen. Cardiomediastinal silhouette is within normal limits. IMPRESSION: New diffuse interstitial prominence. This can be seen in atypical pneumonia or interstit ial pulmonary edema (less likely).
[2019-09-21] MEDS: HEPARIN SODIUM,PORCINE 5,000 UNIT/ML 1 ML VIAL SQ SCH ×2 (08:33→20:33)
--- NOTE | 2019-09-21 08:35 | XR ---
Abdomen HISTORY: Vomiting Frontal view of the abdomen on 2 images There is a metallic post through the region of the umbilical integument. Dextroscoliosis centered at L3-4. Bone mineralization is normal. Scattered calcifications within the pelvis may represent phlebol iths. No evident obstruction or pneumoperitoneum. Lung bases are clear. IMPRESSION: Nonobstructive bowel gas pattern. Follow-up as indicated. Scoliosis.
[2019-09-21] MEDS ORDERED: FUROSEMIDE 10 MG/ML 4 ML VIAL IV STA (08:37)
[2019-09-21] MEDS ORDERED: diphenhydrAMINE 25 MG CAP PO STA (08:43)
--- NOTE | 2019-09-21 08:46 | P.PN ---
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 Hypothyroidism and high blood pressure. She has 2 dogs at home. She has history of hysterectomy secondary to endometriosis Presents because of dyspnea over 3 weeks duration. Patient states that she went to urgent care with diagnosed her with fibrosing from however after one week she went back because she wasn't feeling better and they diagnosed her with bronchitis and cough and these described prep cefdinir and destroyed she felt better and her last dose of antibiotics was once daily, however answers that she started feeling bad again with sore throat fever of 101 and dyspnea. Also she has complained from dry cough, generalized body ache and headache. Also complaining of from diarrhea about 3-4 times per day Vitas looks stable, patient is afebrile and she saturating 95% on room air. Labs showing leukocytosis of 14.5 K, INR within normal limits, BMP and liver enzymes were unremarkable. Chest x-ray: No acute process. In the emergency room she got bronchodilator, and started on Zithromax, also she gets 1 dose of racemic epinephrine for stridor. Patient was started on senna Medrol 60 mg. after therapy patient feels much better, no much try to when I saw the patient 09/20/2019 Patient feels better today her dyspnea is improved by 50% as per her description. No chest pain she has some dry cough, cough suppressant is a provided. Vitas looks stable and she saturating 99% on room air. Her lactic acid came back to normal at 1.7. She remains on Zithromax and Solu-Medrol 60 mg as well as normal saline at 75 mL/h continue with pain management with Fioricet. Pulmonary team are following the patient closely 09/21/2019 Patient this morning feels more sick, she had about an hour of several bouts of vomiting last night associated with nausea, was not blood. Also patient was complaining of from chest heaviness this morning and last night. Vomiting. This morning she is still nauseated. She had 2 bowel movements this morning, she still have coughing. She denies chest pain or abdominal pain. No dizziness. No weakness or numbness or headache. Vitas been a stable, patient is afebrile. Leukocytosis improving down to 16.1 K, hemoglobin 10.9, platelet is 224. Sugar is controlled. was concerned because states that she has pulmonary edema before. Chest x-ray from this morning showing bilateral interstitial prominence atypical pneumonia or pulmonary edema. Fluids were held, DOSE OF LASIX AND CHECK ECHOCARDIOGRAM. We will check labs including lactic acid, magnesium, to troponins, EKG, pro-PNB and pro-calcitonin in and abdominal x-ray (nonobstructive pattern) Review of systems CONSTITUTIONAL: No fever, no malaise, no fatigue. HEENT: No recent visual problems or hearing problems. Denied any sore throat. CARDIOVASCULAR: no palpitations, no syncope. PULMONARY: no hemoptysis. GASTROINTESTINAL: No diarrhea, no abdominal pain. Normoactive bowel sounds. NEUROLOGICAL: No headaches, no weakness, no numbness. HEMATOLOGICAL: Denies any bleeding or petechiae. GENITOURINARY: Denies any burning micturition, frequency, or urgency. MUSCULOSKELETAL/RHEUMATOLOGICAL: Denies any joint pain, swelling, or any muscle pain. ENDOCRINE: Denies any polyuria or polydipsia. Active Medications Generic Name Dose Route Start Last Admin Trade Name Freq PRN Reason Stop Dose Admin Acetaminophen 325 mg 09/19/19 15:38 09/20/19 05:15 Tylenol Tab PO 325 mg Q4HR PRN Administration Fever and/ or MILD Pain Acetaminophen/Butalbital/Caffeine 1 each 09/19/19 17:06 09/20/19 15:01 Fioricet 50-325-40 PO 1 each Q4HR PRN Administration Headache Albuterol/Ipratropium 3 ml 09/19/19 11:01 Duoneb 0.5 Mg-3 Mg/3 Ml Soln INHALATION RT-Q4H PRN Shortness Of Breath Or Wheezing Albuterol/Ipratropium 3 ml 09/19/19 16:00 09/21/19 07:49 Duoneb 0.5 Mg-3 Mg/3 Ml Soln INHALATION 3 ml RT-QID SADAF Administration Azithromycin 500 mg 09/20/19 09:00 09/20/19 09:24 Zithromax PO 500 mg DAILY SADAF Administration Benzonatate 200 mg 09/20/19 22:11 Tessalon Perles PO TID PRN Cough Calcium Carbonate/Glycine 1,000 mg 09/20/19 23:41 09/21/19 00:46 Tums PO 1,000 mg QID PRN Administration Heartburn Epinephrine 0.5 ml 09/19/19 11:06 S2 Racepinephrine INHALATION RT-Q4H PRN Bronchospasm Famotidine 20 mg 09/19/19 21:00 09/20/19 20:32 Pepcid IV 20 mg Q12HR SADAF Administration Guaifenesin/Dextromethorphan 10 ml 09/20/19 09:54 09/20/19 20:42 Robitussin Dm PO 10 ml Q8H PRN Administration Cough Heparin Sodium (Porcine) 5,000 unit 09/19/19 21:00 09/20/19 20:32 Heparin SQ 5,000 unit Q12HR SADAF Administration Sodium Chloride 1,000 mls @ 75 mls/hr 09/19/19 13:00 09/20/19 18:00 Saline 0.9% IV 75 mls/hr .[id number] SADAF Administration Insulin Aspart 0 unit 09/19/19 17:30 09/21/19 06:58 Novolog SQ Not Given ACHS [facility] Protocol Menthol 1 each 09/20/19 22:08 Nice Cough Drops MUCOUS MEM Q2H PRN Sore Throat Methylprednisolone Sodium Succinate 60 mg 09/19/19 12:00 09/21/19 06:53 Solu-Medrol IV 60 mg Q6HR SADAF Administration Sertraline HCl 100 mg 09/20/19 22:15 09/20/19 22:43 Zoloft PO 100 mg HS SADAF Administration Triamterene/HCTZ 1 each 09/21/19 09:00 Maxzide-25 PO DAILY [facility] Objective - Vital Signs Vital signs: Vital Signs Temp 98.3 F 09/21/19 07:50 Pulse 59 L 09/21/19 08:03 Resp 16 09/21/19 07:50 BP 123/85 09/21/19 07:50 Pulse Ox 98 09/21/19 07:50 Intake & Output 09/20/19 09/21/19 09/21/19 18:59 06:59 18:59 Other: # Voids 2 1 - Exam GENERAL: The patient is alert and oriented x3, not in any acute distress. Well d eveloped, well nourished. HEENT: Pupils are round and equally reacting to light. EOMI. No scleral icterus. No conjunctival pallor. Normocephalic, atraumatic. No pharyngeal erythema. No thyromegaly. CARDIOVASCULAR: S1 and S2 present. No murmurs, rubs, or gallops. -PULMONARY: Chest is clear to auscultation, bilateral scattered expiratory wheezing and crepitation ABDOMEN: Soft, nontender, nondistended, normoactive bowel sounds. No palpable organomegaly. MUSCULOSKELETAL: No joint swelling or deformity. EXTREMITIES: No cyanosis, clubbing, or pedal edema. NEUROLOGICAL: Gross neurological examination did not reveal any focal deficits. SKIN: No rashes. No petechiae - Labs CBC & Chem 7: 09/21/19 06:46 09/19/19 10:00 Labs: Abnormal Lab Results - Last 24 Hours (Table) 09/20/19 09/20/19 09/20/19 Range/Units 12:26 12:51 17:44 WBC 20.7 H (3.8-10.6) k/uL RBC 3.75 L (3.80-5.40) m/uL Hgb (11.4-16.0) gm/dL Neutrophils # 19.1 H (1.3-7.7) k/uL POC Glucose (mg/dL) 151 H 154 H (75-99) mg/dL 09/20/19 09/21/19 09/21/19 Range/Units 20:19 06:46 06:46 WBC 16.1 H (3.8-10.6) k/uL RBC 3.55 L (3.80-5.40) m/uL Hgb 10.9 L (11.4-16.0) gm/dL Neutrophils # 13.6 H (1.3-7.7) k/uL POC Glucose (mg/dL) 126 H 109 H (75-99) mg/dL Microbiology - Last 24 Hours (Table) 09/19/19 10:00 Blood Culture - Preliminary Blood No Growth after 24 hours Assessment and Plan Assessment: Upper respiratory tract infection. With negative influenza Acute tracheobronchitis. 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 Also patient had fever. Continue with antibiotics, steroids and bronchodilators. Oxygen as needed. Follow-up recommendation by pulmonary consult. Hold fluid, check echocardiogram. Follow-up labs as above. Labs and medication were reviewed.. Continue same treatment. Continue with symptomatic treatment. Resume home medication. Monitor lytes and vitals. DVT and GI prophylaxis. Further recommendations of the clinical course of the patient DVT prophylaxis: Subcutaneous heparin GI Prophylaxis: Pepcid Prognosis is guarded
[2019-09-21] MEDS: BENZONATATE 100 MG CAP PO PRN ×2 (08:56→20:39)
[2019-09-21 09:37] LABS: African American GFR (CKD) >90 (>60 ml/min/1.73 sqM); Anion Gap 8 mmol/L; Blood Urea Nitrogen 15 mg/dL (7-17); Calcium 8.4 mg/dL (8.4-10.2); Carbon Dioxide 20 mmol/L (22-30); Chloride 112 mmol/L (98-107); Glucose 119 mg/dL (74-99); Magnesium 1.9 mg/dL (1.6-2.3); Potassium 3.9 mmol/L (3.5-5.1); Sodium 140 mmol/L (137-145)
[2019-09-21] MEDS: guaiFENesin-DM 100-10MG/5ML 10 ML CUP PO PRN (09:41)
[2019-09-21] MEDS: MENTHOL (NICE) LOZENGE MUCOUS MEM PRN ×4 (09:41→20:34)
[2019-09-21] MEDS: BUTALB/APAP/CAFF 50-325-40MG TAB PO PRN ×2 (10:08→20:34)
[2019-09-21] MEDS ORDERED: diphenhydrAMINE 50 MG/ML 1 ML VIAL IVP PRN (11:03)
--- NOTE | 2019-09-21 11:57 | P.PN ---
Subjective Progress Note Date: 09/21/19 Principal diagnosis: Acute exacerbation of mild intermittent asthma Pleasant 44-year-old female patient with history of mild intermittent bronchial asthma with not been taking any form of respiratory medications on outpatient basis, comes into the hospital because of increased cough and dyspnea and chest tightness and wheezing related to asthma exacerbation. Apparently this been going on for the past 2-3 weeks. She has seen in urgent care on several occasions and she was given a course of antibiotics and a short course of prednisone burst taper. She was having sore throat and a temperature along with her asthma symptoms. Initially she was told that she was dealing with a viral infection and subsequently she was given antibiotics. Note that the patient was having generalized body aches and headache. She did experience some diarrhea. None for now. She came into the hospital yesterday because of increased dyspnea. She was given bronchodilators and steroids. She was also given a dose of to make epinephrine. She is a bit tachycardic. She is already feeling better. No specific complaints. She has seasonal ALLERGIES and she takes Laure for that. No hospitalizations for asthma related complications. Her disease has been essentially mild intermittent in nature. She has other medical problems and comorbidities yet these are not related to asthma. No recurrent pneumonias. Her lactic acid at time of admission was 2.7. I thought, was at 14.5. Patient was reevaluated today on 09/20/2019, remains inpatient, however the patient is demonstrating a significant improvement over the last 24 hours. Patient is breathing a lot easier, minimal cough minimal wheezing, minimal shortness of breath compared to yesterday. Remains on bronchodilators and steroids as well as antibiotics. Significantly improved over the last 24 hours. WBC count is 20.7 hemoglobin is 11.8, however her leukocytosis could very well be related to steroids. Chest x-ray on admission showed no evidence of pneumonia. On 09/21/2019 patient is seen in follow-up on pediatric unit. Last night patient became quite nauseous, increasing short of breath, chest tightness, she had a couple episodes of vomiting. Apparently her symptoms of increasing shortness of breath worsened overnight, she was complaining of increasing chest tightness, EKG was taken, chest x-ray was taken and showed new diffuse interstitial prominence likely related to interstitial pulmonary edema. In addition patient noted that her face was more swollen, and her lips are more swollen this morning. 40 mg of Lasix IV was given, oral Benadryl was given for possibility of angioedema, possibly an ALLERGIC reaction, unclear to what agent. Patient's Zoloft was restarted after a period of not taking it, previously not ALLERGIC to it, and Robitussin syrup is the only other new agent. Patient diuresed 1500 mL of urine, she is feeling better, she is seen this morning, she is ambulating to the bathroom frequently to urinate, room air pulse ox is 97%, she is afebrile, hemodynamically stable, denies any chest pain, lung sounds reveal minimal crackles at the left base, no wheezing, no rhonchi, no coughing, no inspiratory stridor, her lips still seem to be swollen, but she denies her tongue feeling thick. Patient has a history of thoracic aorta aneurysm she follows with a cardiothoracic surgeon from the [facility]. She denies a history of previous myocardial infarction or any heart problems. Echocardiogram has been completed, plasma lactic acid was 3.4, but hemodynamically patient is s table, proBNP is 1320. At the time of my evaluation patient is calm and comfortable, no acute distress, she is awaiting a transfer to selective unit today Objective - Vital Signs Vital signs: Vital Signs Temp 98.3 F 09/21/19 07:50 Pulse 70 09/21/19 09:48 Resp 16 09/21/19 09:48 BP 131/88 09/21/19 09:48 Pulse Ox 97 09/21/19 09:48 Intake & Output 09/20/19 09/21/19 09/21/19 18:59 06:59 18:59 Output Total 2900 Balance -2900 Output: Urine 2900 Other: # Voids 2 1 2 - Exam GENERAL EXAM: Alert, pleasant comfortable in no apparent distress. HEAD: Normocephalic/atraumatic. EYES: Normal reaction of pupils, equal size. Conjunctiva pink, sclera white. NOSE: Clear with pink turbinates. MOUTH: Patient's lips are swollen, and face mildly swollen, no inspiratory stridor, no neck swelling THROAT: No erythema or exudates. NECK: No masses, no JVD, no thyroid enlargement, no adenopathy. CHEST: No chest wall deformity. Symmetrical expansion. LUNGS: Equal air entry with minimal left lower lobe crackles, wheeze, rhonchi or dullness. CVS: Regular rate and rhythm, normal S1 and S2, no gallops, no murmurs, no rubs ABDOMEN: Soft, nontender. No hepatosplenomegaly, normal bowel sounds, no guarding or rigidity. EXTREMITIES: No clubbing, no edema, no cyanosis, 2+ pulses and upper and lower extremities. MUSCULOSKELETAL: Muscle strength and tone normal. SPINE: No scoliosis or deformity SKIN: No rashes CENTRAL NERVOUS SYSTEM: Alert and oriented -3. No focal deficits, tone is normal in all 4 extremities. PSYCHIATRIC: Alert and oriented -3. Appropriate affect. Intact judgment and insight. - Labs CBC & Chem 7: 09/21/19 06:46 09/21/19 08:49 Labs: Abnormal Lab Results - Last 24 Hours (Table) 09/20/19 09/20/19 09/20/19 Range/Units 12:26 12:51 17:44 WBC 20.7 H (3.8-10.6) k/uL RBC 3.75 L (3.80-5.40) m/uL Hgb (11.4-16.0) gm/dL Neutrophils # 19.1 H (1.3-7.7) k/uL Chloride (98-107) mmol/L Carbon Dioxide (22-30) mmol/L Glucose (74-99) mg/dL POC Glucose (mg/dL) 151 H 154 H (75-99) mg/dL Plasma Lactic Acid Gurpreet (0.7-2.0) mmol/L 09/20/19 09/21/19 09/21/19 Range/Units 20:19 06:46 06:46 WBC 16.1 H (3.8-10.6) k/uL RBC 3.55 L (3.80-5.40) m/uL Hgb 10.9 L (11.4-16.0) gm/dL Neutrophils # 13.6 H (1.3-7.7) k/uL Chloride (98-107) mmol/L Carbon Dioxide (22-30) mmol/L Glucose (74-99) mg/dL POC Glucose (mg/dL) 126 H 109 H (75-99) mg/dL Plasma Lactic Acid Gurpreet (0.7-2.0) mmol/L 09/21/19 09/21/19 Range/Units 08:49 08:49 WBC (3.8-10.6) k/uL RBC (3.80-5.40) m/uL Hgb (11.4-16.0) gm/dL Neutrophils # (1.3-7.7) k/uL Chloride 112 H (98-107) mmol/L Carbon Dioxide 20 L (22-30) mmol/L Glucose 119 H (74-99) mg/dL POC Glucose (mg/dL) (75-99) mg/dL Plasma Lactic Acid Gurpreet 3.4 H* (0.7-2.0) mmol/L Microbiology - Last 24 Hours (Table) 09/19/19 10:00 Blood Culture - Preliminary Blood No Growth after 24 hours Assessment and Plan Plan: Assessment: Angioedema, possible ALLERGIC reaction Interstitial pulmonary edema, possibly related to ALLERGIC reaction, improving with IV diuresis Elevated proBNP suggesting acute exacerbation of congestive heart failure, with an unknown LV function Acute exacerbation of mild intermittent asthma Acute tracheobronchitis, no evidence of infiltrates on the chest x-ray. History of Lyme disease, treated. Hypothyroidism Hypertension History of endometriosis. Plan: Continue bronchodilators, steroids, today's chest x-ray has been reviewed and showed new interstitial pulmonary edema, patient was given a dose of IV Lasix, she has diuresed 1500 mL and is feeling better, she'll be placed on a heart monitor monitor, troponin was negative, proBNP was elevated to 1320, echocardiogram is pending, patient denies any chest pain right now. Her lips remain swollen, and there is a possibility of angioedema and possible ALLERGIC reaction. We'll continue the IV steroids, continue the Pepcid, continue the Benadryl is needed. Cardiology has been consulted and their evaluation is pending, will await results of the echocardiogram and serial troponins. We'll continue to monitor I performed a history & physical examination of the patient and discussed their management with my nurse practitioner, Karen Jon. I reviewed the nurse practitioner's note and agree with the documented findings and plan of care. Lung sounds are positive for diminished breath sounds with minimal crackles at the left base. The findings and the impression was discussed with the patient. I attest to the documentation by the nurse practitioner. Time with Patient: Less than 30
[2019-09-21] MEDS: SODIUM CHLORIDE 0.9% 1,000 ML IV SCH ×2 (12:23→13:39)
[2019-09-21 12:25] LABS: Glucose,Whole Blood 112 mg/dL (75-99)
--- NOTE | 2019-09-21 13:01 | P.CRDCN ---
History of Present Illness History of present illness: HISTORY OF PRESENTING ILLNESS This is a pleasant 44-year-old female past medical history significant for asthma, hypothyroidism, hypertension and migraine headaches. She presented with cough 3 weeks. She does not follow in the office with a bulk filler. We have been asked to see him in consultation for asthma and aortic aneurysm. The patient is seen and examined resting comfortably laying flat in bed with her spouse at the bedside. She denies active chest discomfort or shortness of breath. She states she has been struggling with cough and shortness of breath for the previous 3 weeks. She has been on antibiotics and steroids without much relief at home prompting her to come to the hospital. She has been started on antibiotics, up-draft treatments, tessalon pearles and IV steroids. Apparently this morning she had some swelling to her lips and face and was experiencing shortness of breath and chest tightness suggestive of an allergic reaction. Benadryl was given and her symptoms resolved. There is some question of an abdominal aortic aneurysm the patient verbalized by history as Grade IV. Previous CT of the chest reviewed from 2013 revealing descending thoracic aneurysm with maximum transverse diameter 3.75 cm and descending measuring 2.25 cm. DIAGNOSTICS EKG reveals sinus mechanism with no acute ST or T-wave abnormalities. Chest xray on admission was negative for an acute cardiopulmonary process, repeat today revealed diffuse interstitial prominence. Laboratory reviewed, WBC 16.1, hemoglobin 10.9, platelets 224, sodium 140, potassium 3.9, creatinine 0.67, lactic acid 3.4, troponin negative 1, proBNP 1320 and magnesium 1.9. Current cardiac medications include triamterene/hydrochlorothiazide 37.5/25 mg daily. REVIEW OF SYSTEMS At the time of my exam: CONSTITUTIONAL: Complains of intermittent fever or chills at home, afebrile since admission. CARDIOVASCULAR: Denies chest pain, shortness of breath, orthopnea, PND or palpitations. RESPIRATORY: Complains of ongoing dry cough. GASTROINTESTINAL: Denies abdominal pain, diarrhea, constipation, nausea or vomiting. MUSCULOSKELETAL: Denies myalgias. NEUROLOGIC: Denies numbness, tingling or weakness. ENDOCRINE: Denies fatigue, weight change, polydipsia or polyurina. GENITOURINARY: Denies burning, hematuria or urgency with micturation. HEMATOLOGIC: Denies history of anemia or bleeding. PHYSICAL EXAMINATION Blood pressure 131/88 heart rate 70 afebrile and maintaining oxygen saturaiton on room air. CONSTITUTIONAL: No apparent distress. HEENT: Head is normocephalic. Pupils are equal, round. Sclerae anicteric. Mucous membranes of the mouth are moist. No JVD. No carotid bruit. CHEST EXAMINATION: Lungs are clear to auscultation. No chest wall tenderness is noted on palpation or with deep breathing. Diminished bilaterally. HEART EXAMINATION: Regular rate and rhythm. S1, S2 heard. No murmurs, gallops or rub. ABDOMEN: Soft, nontender. Positive bowel sounds. EXTREMITIES: 2+ peripheral pulses, no lower extremity edema and no calf tenderness. NEUROLOGIC EXAMINATION: Patient is awake, alert and oriented x3. ASSESSMENT Acute exacerbation of asthma Acute bronchitis Leukocytosis Lactic acidosis Chest pain, atypical for angina. Related to shortness of breath and wheezing resolved by updraft treatment. Hypertension PLAN Chest pain is atypical for angina likely related to underlying bronchitis and asthma exacerbation. Chest tightness is associated with shortness of breath and wheezing and resolves with breathing treatment. Troponin negative no EKG changes. Clinically the patient is euvolemic. No heart failure. Ongoing medical management per primary care team and pulmonary. Appropriate for medical surgical floor. Thank you kindly for this consultation. Nurse Practitioner note has been reviewed, I agree with a documented findings and plan of care. Patient was seen and examined. Past Medical History Past Medical History: Asthma, Seizure Disorder Additional Past Medical History / Comment(s): pituitary adenoma/ migraines/ influenza. Positive lyme dx 10 years ago History of Any Multi-Drug Resistant Organisms: MRSA Date of last positivie culture/infection: 2014 MDRO Source:: nose Past Surgical History: Section Additional Past Anesthesia/Blood Transfusion Reaction / Comment(s): NEVER Had blood transfusion Past Psychological History: ADD/ADHD, Anxiety Smoking Status: Never smoker Past Alcohol Use History: None Reported - Past Family History Mother Family Medical History: No Reported History Father Family Medical History: No Reported History Medications and Allergies Home Medications Medication Instructions Recorded Confirmed Type Albuterol Nebulized [Ventolin 2.5 mg INHALATION RT-TID PRN 10/04/15 09/19/19 History Nebulized] Sertraline HCl [Zoloft] 100 mg PO HS 09/19/19 09/19/19 History Thyroid,Pork [Dania Thyroid] 60 mg PO DAILY 09/19/19 09/19/19 History Triamterene/Hydrochlorothiazid 1 tab PO DAILY 09/19/19 09/19/19 History [Maxzide 37.5-25] hydrOXYzine HCL [Atarax] 12.5 - 25 mg PO HS 09/19/19 09/19/19 History Allergies Allergy/AdvReac Type Severity Reaction Status Date / Time amitriptyline HCl Allergy Unknown Verified 09/19/19 11:20 [From Elavil] hydrocodone bitartrate Allergy Unknown Verified 09/19/19 11:20 [From Vicodin] latex Allergy Unknown Verified 09/19/19 11:20 levomilnacipran HCl Allergy Unknown Verified 09/19/19 11:20 [From Fetzima] phenytoin sodium Allergy Unknown Verified 09/19/19 11:20 [From Dilantin] phenytoin sodium extended Allergy Unknown Verified 09/19/19 11:20 [From Dilantin] zolpidem tartrate Allergy Unknown Verified 09/19/19 11:20 [From Ambien] Physical Exam Vitals: Vital Signs Temp Pulse Pulse Resp BP Pulse Ox 09/21/19 11:48 70 09/21/19 09:48 70 16 131/88 97 09/21/19 08:03 59 L 09/21/19 07:50 98.3 F 64 16 123/85 98 09/21/19 07:49 57 L 09/21/19 00:40 97.5 F L 55 L 18 136/93 98 09/20/19 21:10 88 09/20/19 20:59 88 09/20/19 20:00 97.5 F L 80 18 122/74 97 09/20/19 17:27 90 09/20/19 17:17 90 09/20/19 16:20 98.3 F 82 18 105/67 98 09/20/19 16:15 98.3 F 82 18 105/67 98 09/20/19 13:35 88 09/20/19 13:23 92 09/20/19 12:10 98.4 F 80 18 101/67 100 Intake and Output 09/20/19 09/21/19 09/21/19 22:59 06:59 14:59 Intake Total 1200 Output Total 3550 Balance -2350 Intake: Oral 1200 Output: Urine 3550 Other: # Voids 1 1 2 Results 09/21/19 06:46 09/21/19 08:49 Cardiac Enzymes 09/21/19 Range/Units 08:49 Troponin I <0.012 (0.000-0.034) ng/mL CBC 09/20/19 09/21/19 Range/Units 12:51 06:46 WBC 20.7 H 16.1 H (3.8-10.6) k/uL RBC 3.75 L 3.55 L (3.80-5.40) m/uL Hgb 11.8 10.9 L (11.4-16.0) gm/dL Hct 36.0 34.6 (34.0-46.0) % Plt Count 240 224 (150-450) k/uL Comprehensive Metabolic Panel 09/21/19 Range/Units 08:49 Sodium 140 (137-145) mmol/L Potassium 3.9 (3.5-5.1) mmol/L Chloride 112 H (98-107) mmol/L Carbon Dioxide 20 L (22-30) mmol/L BUN 15 (7-17) mg/dL Creatinine 0.67 (0.52-1.04) mg/dL Glucose 119 H (74-99) mg/dL Calcium 8.4 (8.4-10.2) mg/dL Current Medications Generic Name Dose Route Start Last Admin Trade Name Freq PRN Reason Stop Dose Admin Acetaminophen 325 mg 09/19/19 15:38 09/20/19 05:15 Tylenol Tab PO 325 mg Q4HR PRN Administration Fever and/ or MILD Pain Acetaminophen/Butalbital/Caffeine 1 each 09/19/19 17:06 09/21/19 10:08 Fioricet 50-325-40 PO 1 each Q4HR PRN Administration Headache Albuterol/Ipratropium 3 ml 09/19/19 11:01 Duoneb 0.5 Mg-3 Mg/3 Ml Soln INHALATION RT-Q4H PRN Shortness Of Breath Or Wheezing Albuterol/Ipratropium 3 ml 09/19/19 16:00 09/21/19 11:48 Duoneb 0.5 Mg-3 Mg/3 Ml Soln INHALATION 3 ml RT-QID SADAF Administration Azithromycin 500 mg 09/20/19 09:00 09/21/19 08:32 Zithromax PO 500 mg DAILY SADAF Administration Benzonatate 200 mg 09/20/19 22:11 09/21/19 08:56 Tessalon Perles PO 200 mg TID PRN Administration Cough Calcium Carbonate/Glycine 1,000 mg 09/20/19 23:41 09/21/19 00:46 Tums PO 1,000 mg QID PRN Administration Heartburn Diphenhydramine HCl 25 mg 09/21/19 11:03 Benadryl IVP Q6HR PRN Allergy Symptoms Epinephrine 0.5 ml 09/19/19 11:06 S2 Racepinephrine INHALATION RT-Q4H PRN Bronchospasm Famotidine 20 mg 09/19/19 21:00 09/21/19 08:32 Pepcid IV 20 mg Q12HR SADAF Administration Guaifenesin/Dextromethorphan 10 ml 09/20/19 09:54 09/21/19 09:41 Robitussin Dm PO 10 ml Q8H PRN Administration Cough Heparin Sodium (Porcine) 5,000 unit 09/19/19 21:00 09/21/19 08:33 Heparin SQ 5,000 unit Q12HR SADAF Administration Ceftriaxone Sodium 1 gm/ 50 mls @ 100 mls/hr 09/21/19 11:00 09/21/19 11:09 Sodium Chloride IVPB 100 mls/hr Q24HR SADAF Administration Sodium Chloride 1,000 mls @ 75 mls/hr 09/21/19 12:00 Saline 0.9% IV .[id number] [facility] Insulin Aspart 0 unit 09/19/19 17:30 09/21/19 06:58 Novolog SQ Not Given ACHS [facility] Protocol Menthol 1 each 09/20/19 22:08 09/21/19 11:50 Nice Cough Drops MUCOUS MEM 1 each Q2H PRN Administration Sore Throat Methylprednisolone Sodium Succinate 60 mg 09/19/19 12:00 09/21/19 06:53 Solu-Medrol IV 60 mg Q6HR SADAF Administration Sertraline HCl 100 mg 09/20/19 22:15 09/20/19 22:43 Zoloft PO 100 mg HS SADAF Administration Triamterene/HCTZ 1 each 09/21/19 09:00 09/21/19 08:31 Maxzide-25 PO 1 each DAILY SADAF Administration Intake and Output 1109/21/19 09/21/19 22:59 06:59 14:59 Intake Total 1200 Output Total 3550 Balance -2350 Intake: Oral 1200 Output: Urine 3550 Other: # Voids 1 1 2 09/21/19 06:46 09/21/19 08:49
--- NOTE | 2019-09-21 13:52 | ECHOF ---
Referral Reason:Rule out heart disease MEASUREMENTS -------- HEIGHT: 152.4 cm WEIGHT: 77.1 kg BP: IVSd: 0.8 cm (0.6 - 1.1) LVIDd: 4.4 cm (3.9 - 5.3) LVPWd: 1.3 cm (0.6 - 1.1) IVSs: 1.4 cm LVIDs: 2.4 cm LVPWs: 1.6 cm LA Diam: 3.1 cm (2.7 - 3.8) RVIDd: 3.1 cm (< 3.3) LAESV Index (A-L): 24.27 ml/m AV Cusp: 3.0 cm (1.5 - 2.6) EPSS: 0.5 cm MV E Heriberto: 0.88 m/s MV DecT: 139 ms MV A Heriberto: 0.72 m/s MV E/A Ratio: 1.23 RAP: 5.00 mmHg RVSP: 22.90 mmHg MV EF SLOPE: 159.74 mm/s (70 - 150) MV EXCURSION: 20.56 mm (> 18.000) FINDINGS -------- Sinus rhythm. This was a technically adequate study. The left ventricular size is normal. The right ventricle is normal in size. The left atrial size is normal. The right atrial size is normal. There is mild aortic valve sclerosis. There is no evidence of aortic regurgitation. Mild mitral annular calcification present. Mild mitral regurgitation is present. Mild tricuspid regurgitation present. Right ventricular systolic pressure is normal at < 35 mmHg. There is no evidence of pulmonary hypertension. There is no pulmonic regurgitation present. Ascending Aortic Root is mildly dilated and measures 3.8cm. There is no pericardial effusion. CONCLUSIONS -------- 1. Sinus rhythm. 2. This was a technically adequate study. 3. The left ventricular size is normal. 4. The right ventricle is normal in size. 5. The left atrial size is normal. 6. The right atrial size is normal. 7. There is mild aortic valve sclerosis. 8. Mild mitral annular calcification present. 9. Mild mitral regurgitation is present. 10. Mild tricuspid regurgitation present. 11. Right ventricular systolic pressure is normal at < 35 mmHg. 12. There is no evidence of pulmonary hypertension. 13. There is no pulmonic regurgitation present. 14. Ascending Aortic Root is mildly dilated and measures 3.8cm. 15. There is no pericardial effusion. ICT TEACHER: Kamilla Delgado RDCS
[2019-09-21] MEDS ORDERED: diphenhydrAMINE 25 MG CAP PO PRN (18:17)
[2019-09-21 20:29] LABS: Glucose,Whole Blood 174 mg/dL (75-99)
[2019-09-21] MEDS: SERTRALINE 100 MG TAB PO SCH (20:56)
[2019-09-22] MEDS: SODIUM CHLORIDE 0.9% 1,000 ML IV SCH (03:19)
[2019-09-22] MEDS: methylPREDNISolone SOD SUCCI 125 MG/2 ML VIAL IV SCH ×2 (05:25→12:27)
[2019-09-22 06:26] LABS: Basophils % (A) 0 %; Eosinophils % (A) 0 %; HCT 33.4 % (34.0-46.0); HGB 11.1 gm/dL (11.4-16.0); Lymphocytes % (A) 9 %; MCH 31.7 pg (25.0-35.0); MCHC 33.4 g/dL (31.0-37.0); Mean Platelet Volume 7.1; Monocytes # (A) 0.3 k/uL (0-1.0); Monocytes % (A) 2 %; Neutrophils # (A) 10.3 k/uL (1.3-7.7); Neutrophils % (A) 88 %; Platelet Count 208 k/uL (150-450); RBC 3.51 m/uL (3.80-5.40); RDW 12.5 % (11.5-15.5); WBC 11.6 k/uL (3.8-10.6)
[2019-09-22 07:14] LABS: Glucose,Whole Blood 138 mg/dL (75-99)
[2019-09-22] MEDS: IPRATROPIUM-ALBUTEROL 3 ML NEB INHALATION SCH ×3 (07:52→15:30)
[2019-09-22] MEDS: BUTALB/APAP/CAFF 50-325-40MG TAB PO PRN ×2 (08:12→14:50)
[2019-09-22] MEDS: INSULIN ASPART (NovoLOG) 100 UNIT/ML VIAL SQ SCH ×2 (08:29→12:27)
[2019-09-22] MEDS: HEPARIN SODIUM,PORCINE 5,000 UNIT/ML 1 ML VIAL SQ SCH (08:30)
[2019-09-22] MEDS: AZITHROMYCIN 500 MG TAB PO SCH (08:30)
[2019-09-22] MEDS: TRIAMTERENE-HCTZ 37.5-25MG 1 EACH TAB PO SCH (08:30)
[2019-09-22] MEDS: FAMOTIDINE 20 MG/2 ML VIAL IV SCH (08:31)
[2019-09-22] MEDS: MENTHOL (NICE) LOZENGE MUCOUS MEM PRN (08:38)
[2019-09-22 08:42] VITALS: BP 136/75; RESP 16; TEMP 98.3
[2019-09-22] MEDS: BENZONATATE 100 MG CAP PO PRN (09:23)
[2019-09-22 11:54] LABS: Glucose,Whole Blood 134 mg/dL (75-99)
[2019-09-22 11:58] VITALS: PULSE 70
--- NOTE | 2019-09-22 12:15 | P.PN ---
Subjective Progress Note Date: 09/22/19 Principal diagnosis: Acute exacerbation of mild intermittent asthma Pleasant 44-year-old female patient with history of mild intermittent bronchial asthma with not been taking any form of respiratory medications on outpatient basis, comes into the hospital because of increased cough and dyspnea and chest tightness and wheezing related to asthma exacerbation. Apparently this been going on for the past 2-3 weeks. She has seen in urgent care on several occasions and she was given a course of antibiotics and a short course of prednisone burst taper. She was having sore throat and a temperature along with her asthma symptoms. Initially she was told that she was dealing with a viral infection and subsequently she was given antibiotics. Note that the patient was having generalized body aches and headache. She did experience some diarrhea. None for now. She came into the hospital yesterday because of increased dyspnea. She was given bronchodilators and steroids. She was also given a dose of to make epinephrine. She is a bit tachycardic. She is already feeling better. No specific complaints. She has seasonal ALLERGIES and she takes Laure for that. No hospitalizations for asthma related complications. Her disease has been essentially mild intermittent in nature. She has other medical problems and comorbidities yet these are not related to asthma. No recurrent pneumonias. Her lactic acid at time of admission was 2.7. I thought, was at 14.5. Patient was reevaluated today on 09/20/2019, remains inpatient, however the patient is demonstrating a significant improvement over the last 24 hours. Patient is breathing a lot easier, minimal cough minimal wheezing, minimal shortness of breath compared to yesterday. Remains on bronchodilators and steroids as well as antibiotics. Significantly improved over the last 24 hours. WBC count is 20.7 hemoglobin is 11.8, however her leukocytosis could very well be related to steroids. Chest x-ray on admission showed no evidence of pneumonia. On 09/21/2019 patient is seen in follow-up on pediatric unit. Last night patient became quite nauseous, increasing short of breath, chest tightness, she had a couple episodes of vomiting. Apparently her symptoms of increasing shortness of breath worsened overnight, she was complaining of increasing chest tightness, EKG was taken, chest x-ray was taken and showed new diffuse interstitial prominence likely related to interstitial pulmonary edema. In addition patient noted that her face was more swollen, and her lips are more swollen this morning. 40 mg of Lasix IV was given, oral Benadryl was given for possibility of angioedema, possibly an ALLERGIC reaction, unclear to what agent. Patient's Zoloft was restarted after a period of not taking it, previously not ALLERGIC to it, and Robitussin syrup is the only other new agent. Patient diuresed 1500 mL of urine, she is feeling better, she is seen this morning, she is ambulating to the bathroom frequently to urinate, room air pulse ox is 97%, she is afebrile, hemodynamically stable, denies any chest pain, lung sounds reveal minimal crackles at the left base, no wheezing, no rhonchi, no coughing, no inspiratory stridor, her lips still seem to be swollen, but she denies her tongue feeling thick. Patient has a history of thoracic aorta aneurysm she follows with a cardiothoracic surgeon from the [facility]. She denies a history of previous myocardial infarction or any heart problems. Echocardiogram has been completed, plasma lactic acid was 3.4, but hemodynamically patient is s table, proBNP is 1320. At the time of my evaluation patient is calm and comfortable, no acute distress, she is awaiting a transfer to selective unit today On 09/22/2019 patient seen in follow-up on medical surgical floor. Facial swelling has subsided, lips are still mildly swollen but significantly improved, breathing is improving, patient has diuresed extensively over last 24 hours, and on today's exam her lung sounds bit coarse but no rales auscultated. She is on room air, with a pulse ox of 99%, afebrile, hemodynamically stable, echocardiogram results have been reviewed, no reported EF, mild aortic valve sclerosis, no evidence of aortic regurgitation, mild mitral regurg, and mild tricuspid regurg, no evidence of pulmonary hypertension. No pericardial effusion. No recurrence of symptoms, she continues on IV Solu-Medrol, breathing treatments, and antibiotics. We'll culture showed no growth, patient has been tolerating ambulation, she is hoping to go home today. Objective - Vital Signs Vital signs: Vital Signs Temp 98.3 F 09/22/19 07:41 Pulse 70 09/22/19 11:57 Resp 16 09/22/19 07:41 BP 136/75 09/22/19 07:41 Pulse Ox 99 09/22/19 07:41 Intake & Output 09/21/19 09/22/19 09/22/19 18:59 06:59 18:59 Intake Total 1200 512.5 240 Output Total 4200 Balance -3000 512.5 240 Intake: Intake, IV Titration 312.5 Amount Sodium Chloride 0.9% 1, 312.5 000 ml @ 25 mls/hr IV . Q24H SAD[facility] Rx#:[id number] Oral 1200 200 240 Output: Urine 4200 Other: Voiding Method Toilet # Voids 3 - Exam GENERAL EXAM: Alert, pleasant comfortable in no apparent distress. HEAD: Normocephalic/atraumatic. EYES: Normal reaction of pupils, equal size. Conjunctiva pink, sclera white. NOSE: Clear with pink turbinates. MOUTH: Patient's lips are still mildly swollen, and facial swelling subsided, no inspiratory stridor, no neck swelling THROAT: No erythema or exudates. NECK: No masses, no JVD, no thyroid enlargement, no adenopathy. CHEST: No chest wall deformity. Symmetrical expansion. LUNGS: Equal air entry with slightly coarse breath sounds, but no wheezing, no rales, equal air entry bilaterally, CVS: Regular rate and rhythm, normal S1 and S2, no gallops, no murmurs, no rubs ABDOMEN: Soft, nontender. No hepatosplenomegaly, normal bowel sounds, no guarding or rigidity. EXTREMITIES: No clubbing, no edema, no cyanosis, 2+ pulses and upper and lower extremities. MUSCULOSKELETAL: Muscle strength and tone normal. SPINE: No scoliosis or deformity SKIN: No rashes CENTRAL NERVOUS SYSTEM: Alert and oriented -3. No focal deficits, tone is normal in all 4 extremities. PSYCHIATRIC: Alert and oriented -3. Appropriate affect. Intact judgment and insight. - Labs CBC & Chem 7: 09/22/19 06:12 09/21/19 08:49 Labs: Abnormal Lab Results - Last 24 Hours (Table) 09/21/19 09/21/19 09/21/19 Range/Units 12:21 13:53 17:47 WBC (3.8-10.6) k/uL RBC (3.80-5.40) m/uL Hgb (11.4-16.0) gm/dL Hct (34.0-46.0) % Neutrophils # (1.3-7.7) k/uL POC Glucose (mg/dL) 112 H (75-99) mg/dL Plasma Lactic Acid Gurpreet 3.0 H* 4.3 H* (0.7-2.0) mmol/L 09/21/19 09/22/19 09/22/19 Range/Units 20:26 06:12 06:12 WBC 11.6 H (3.8-10.6) k/uL RBC 3.51 L (3.80-5.40) m/uL Hgb 11.1 L (11.4-16.0) gm/dL Hct 33.4 L (34.0-46.0) % Neutrophils # 10.3 H (1.3-7.7) k/uL POC Glucose (mg/dL) 174 H (75-99) mg/dL Plasma Lactic Acid Gurpreet 2.2 H* (0.7-2.0) mmol/L 09/22/19 09/22/19 09/22/19 Range/Units 07:11 09:52 11:52 WBC (3.8-10.6) k/uL RBC (3.80-5.40) m/uL Hgb (11.4-16.0) gm/dL Hct (34.0-46.0) % Neutrophils # (1.3-7.7) k/uL POC Glucose (mg/dL) 138 H 134 H (75-99) mg/dL Plasma Lactic Acid Gurpreet 3.1 H* (0.7-2.0) mmol/L Microbiology - Last 24 Hours (Table) 09/19/19 10:00 Blood Culture - Preliminary Blood No Growth after 72 hours Assessment and Plan Plan: Assessment: Angioedema, to an unknown agent Interstitial pulmonary edema, likely noncardiogenic in nature, related to ALLERGIC reaction, improving with IV diuresis Elevated proBNP suggesting acute exacerbation of congestive heart failure, with an unknown LV function Acute exacerbation of mild intermittent asthma Acute tracheobronchitis, no evidence of infiltrates on the chest x-ray. History of Lyme disease, treated. Hypothyroidism Hypertension History of endometriosis. Plan: Patient has significantly diuresed, and her breathing is stable on today's exam, no shortness of breath, no chest tightness, she is on room air, tolerating ablation, no wheezing, repeat chest x-ray today, clinically patient is stable, echocardiogram results have been noted, no EF was reported, no significant valve abnormality, no pericardial effusion. This was likely noncardiogenic pulmonary edema, likely related to an ALLERGIC reaction. Increase activity as tolerated, possible discharge home today I performed a history & physical examination of the patient and discussed their management with my nurse practitioner, Karen Jon. I reviewed the nurse practitioner's note and agree with the documented findings and plan of care. Lung sounds are positive for diminished breath sounds with minimal crackles at the left base. The findings and the impression was discussed with the patient. I attest to the documentation by the nurse practitioner. Time with Patient: Less than 30
--- NOTE | 2019-09-22 13:42 | XR ---
EXAMINATION TYPE: XR chest 2V DATE OF EXAM: 09/22/2019 COMPARISON: 09/21/2019 TECHNIQUE: PA and lateral views submitted. HISTORY: interstitial edema FINDINGS: The lungs are clear and there is no pneumothorax, pleural effusion, or focal pneumonia. IMPRESSION: 1. No acute process.
[2019-09-22] MEDS: ACETAMINOPHEN TAB 325 MG TAB PO PRN (14:51)
[2019-09-22] MEDS ORDERED: FAMOTIDINE 20 MG TAB PO SCH (21:00)
--- NOTE | 2019-09-23 08:39 | P.DS ---
Providers Date of admission: 09/21/19 09:33 Expected date of discharge: 09/22/19 Attending physician: Jah Carrasco Consults: 09/19/19 12:39 Consult Physician Urgent Consulting Provider: Anthony Elliott Consult Reason/Comments: asthma with stridor Do you want consulting provider notified?: Yes 09/21/19 10:29 Consult Physician Urgent Consulting Provider: Raymond Huang Consult Reason/Comments: hx arotic aneurysm, asthma Do you want consulting provider notified?: Already Contacted Primary care physician: Urszula Guzman [facility] Course: Final diagnosis Upper respiratory tract infection with negative influenza Acute tracheobronchitis. 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 Patient will continue short course of oral antibiotics as well as a prednisone taper upon discharge. Total time taken is 35 minutes. History of present illness This is a pleasant 44 years old female with past medical history of known epileptic seizure disorder which could be related to lyme disease and she takes Ativan as needed and asthma since childhood, Lyme disease with aneurysm and her heart, she's been worked up for possible lupus and she is going to see a specialist in 2 weeks. Hypothyroidism and high blood pressure. Presents because of dyspnea over 3 weeks duration. Patient states that she went to urgent care with diagnosed her with fibrosing from however after one week she went back because she wasn't feeling better and they diagnosed her with bronchitis and cough and these described prep cefdinir and destroyed she felt better and her last dose of antibiotics was once daily, however answers that she started feeling bad again with sore throat fever of 101 and dyspnea. Also she has com plained from dry cough, generalized body ache and headache. Also complaining of from diarrhea about 3-4 times per day during hospitalization patient was continued on bronchodilators, Zithromax, steroids, and was given a dose of racemic epinephrine in the emergency room. Patient was being closely monitored. Multiple medical consultations were following. During hospitalization after taking a Zoloft that she normally takes every day she started experiencing some swelling of her lips and face and having some shortness of breath. Patient was given Benadryl and continued on steroids and was closely monitored. Patient's condition improved and currently patient's condition is stable and would like to go home today. Today's chest x-ray showed lungs are clear and there is no pneumothorax, pleural effusion, or focal pneumonia. Patient states her breathing has improved and is currently denying any chest pain or palpitations at this time. Patient has been afebrile. Patient denies any nausea or vomiting and is tolerating diet. Patient will follow-up with her primary care provider in the outpatient setting upon discharge. Guarded prognosis. On exam vital signs are stable. Temp is 98.3F, pulse is 68, respirations are 16, blood pressure is 136/75, oxygen saturation is 99% on room air. Cardio S1 and S2 are present. Respiratory system shows diminished breath sounds at the bases with mild expiratory wheezing noted. Abdomen is soft and nontender. Nervous system shows no focal deficits. Please refer to medication reconciliation sheet for a list of medications. Patient Condition at Discharge: Stable Plan - Discharge Summary Discharge Rx Participant: Yes New Discharge Prescriptions: New predniSONE 10 mg PO DIRECTED #30 tab Montelukast Sodium [Singulair] 10 mg PO HS 30 Days #30 tab Budesonide-Formot 160-4.5 Mcg [Symbicort 160-4.5 Mcg Inhaler] 2 puff INHALATION BID 30 Days #1 inhaler Benzonatate [Tessalon Perles] 200 mg PO TID PRN #20 cap PRN Reason: Cough Azithromycin [Zithromax] 500 mg PO DAILY 4 Days #4 tab Continue Albuterol Nebulized [Ventolin Nebulized] 2.5 mg INHALATION RT-TID PRN PRN Reason: Shortness Of Breath hydrOXYzine HCL [Atarax] 12.5 - 25 mg PO HS Thyroid,Pork [Corinth Thyroid] 60 mg PO DAILY Sertraline HCl [Zoloft] 100 mg PO HS Triamterene/Hydrochlorothiazid [Maxzide 37.5-25] 1 tab PO DAILY Discharge Medication List Albuterol Nebulized [Ventolin Nebulized] 2.5 mg INHALATION RT-TID PRN 10/04/15 [History] Sertraline HCl [Zoloft] 100 mg PO HS 09/19/19 [History] Thyroid,Pork [Corinth Thyroid] 60 mg PO DAILY 09/19/19 [History] Triamterene/Hydrochlorothiazid [Maxzide 37.5-25] 1 tab PO DAILY 09/19/19 [History] hydrOXYzine HCL [Atarax] 12.5 - 25 mg PO HS 09/19/19 [History] Azithromycin [Zithromax] 500 mg PO DAILY 4 Days #4 tab 09/22/19 [Rx] Benzonatate [Tessalon Perles] 200 mg PO TID PRN #20 cap 09/22/19 [Rx] Budesonide-Formot 160-4.5 Mcg [Symbicort 160-4.5 Mcg Inhaler] 2 puff INHALATION BID 30 Days #1 inhaler 09/22/19 [Rx] Montelukast Sodium [Singulair] 10 mg PO HS 30 Days #30 tab 09/22/19 [Rx] predniSONE 10 mg PO DIRECTED #30 tab 09/22/19 [Rx] Follow up Appointment(s)/Referral(s): Urszula Guzman MD [Primary Care Provider] - 1-2 days (office will call with appointment time) Patient Instructions/Handouts: Asthma (DC) Activity/Diet/Wound Care/Special Instructions: Activity Limited until follow-up Continue antibiotics until finished Continue steroids until finished Follow-up with primary care provider upon discharge Discharge Disposition: HOME SELF-CARE
== END 2019-09-22 15:40 | disposition home or self-care (01) | DRG 202 ==
LOC: EC 09:44 → 6PED 11:05 → OBSVTOIN 09-21 09:33 → 4SSUR 09-21 13:27
PROVIDERS: ADMIT Hospitalist; ATTEND Hospitalist
DX: J20.9 Acute bronchitis, unspecified (principal); J45.21 Mild intermittent asthma with (acute) exacerbation; E87.2 Acidosis; E03.9 Hypothyroidism, unspecified; F41.9 Anxiety disorder, unspecified; F90.9 Attention-deficit hyperactivity disorder, unspecified type; G40.909 Epilepsy, unspecified, not intractable, without status epilepticus; T78.40XA Allergy, unspecified, initial encounter; T78.3XXA Angioneurotic edema, initial encounter; J70.9 Respiratory conditions due to unspecified external agent; T38.0X5A Adverse effect of glucocorticoids and synthetic analogues, initial encounter; D72.829 Elevated white blood cell count, unspecified; I10 Essential (primary) hypertension; I71.4 Abdominal aortic aneurysm, without rupture; D35.2 Benign neoplasm of pituitary gland; G43.909 Migraine, unspecified, not intractable, without status migrainosus; R06.1 Stridor; R19.7 Diarrhea, unspecified; R07.89 Other chest pain; Z86.19 Personal history of other infectious and parasitic diseases; Z90.710 Acquired absence of both cervix and uterus; Z86.14 Personal history of Methicillin resistant Staphylococcus aureus infection; Z79.899 Other long term (current) drug therapy; Z88.5 Allergy status to narcotic agent; Z88.8 Allergy status to other drugs, medicaments and biological substances; Z91.040 Latex allergy status
CPT/HCPCS: 36415; 71046; 74018; 80048; 80053; 83036; 83605; 83735; 83880; 84145; 84484; 85025; 85610; 85730; 87040; 87502; 93005; 93306; 94640; 96365; 96368; 99285

== ENCOUNTER → 2021-11-12 | Outpatient (CLI) | payer OTHER | END | disposition home or self-care (01) | LOC: LABWHC1 09:29 | PROVIDERS: ATTEND Family Medicine | DX: Z20.822 Contact with and (suspected) exposure to COVID-19 (principal); R06.02 Shortness of breath | CPT/HCPCS: U0003; C9803; U0005 ==

== ENCOUNTER → 2022-02-27 | Outpatient (CLI) | payer BC | END | disposition home or self-care (01) | LOC: LABWHC1 11:32 | PROVIDERS: ATTEND Family Medicine | DX: Z20.822 Contact with and (suspected) exposure to COVID-19 (principal) | CPT/HCPCS: U0003; C9803; U0005 ==